=== PATIENT | female | born 1945 | race Caucasian/White ===

== ENCOUNTER → 2016-08-26 | Outpatient (CLI) | payer MEDICARE, OTHER ==
[~2016-08-26] MED LIST: ALBU83IN INH; ALBUTEROL INH; ASTELIN SPRAY; EPIP0.3I2 SC; FLOM5CAP PO; LIBR5CAP PO; LIBRAX PO; MULTCAP PO; OXYC1TAB23 PO; PROBCAP4 PO; PROT1TAB2 PO; SYMBICORT INH; SYNT125T PO
[2016-08-26 13:07] LABS: MEAN CORPUSCULAR HEMOGLOBIN 32.2 pg (27.0-33.0); MEAN CORPUSCULAR HGB CONC 33.6 g/dl (32.0-36.5); MEAN CORPUSCULAR VOLUME 95.6 fl (80.0-96.0); RED CELL DISTRIBUTION WIDTH 12.3 % (11.5-14.5)
[2016-08-26 13:42] LABS: ALBUMIN 3.6 GM/DL (3.2-5.2); ALBUMIN/GLOBULIN RATIO 1.29 (1.00-1.93); BILIRUBIN,TOTAL 0.5 MG/DL (0.2-1.0); CREATININE FOR GFR 0.98 MG/DL (0.55-1.02); GLOMERULAR FILTRATION RATE 59.7 (>39); POTASSIUM SERUM 4.5 MEQ/L (3.5-5.1); TOTAL PROTEIN 6.4 GM/DL (6.4-8.2)
== END ==
LOC: M WUC 09:32
PROVIDERS: ATTEND Internal Medicine
DX: J45.909 Unspecified asthma, uncomplicated (principal); E78.00 Pure hypercholesterolemia, unspecified; E03.9 Hypothyroidism, unspecified

== ENCOUNTER → 2016-12-11 | Outpatient (REF) | payer MEDICARE, OTHER | LOC: M SFHCPLAZ 11:45 | PROVIDERS: ATTEND Nurse Practitioner Adult Health | DX: J45.909 Unspecified asthma, uncomplicated (principal) ==

== ENCOUNTER → 2016-12-11 | Outpatient (REF) | payer MEDICARE, OTHER ==
[2016-12-11 12:36] LABS: CONTROL LINE MONO INT CTR LINE PRESENT
== END ==
LOC: M SFHCPLAZ 09:39
PROVIDERS: ATTEND Nurse Practitioner Adult Health
DX: J02.9 Acute pharyngitis, unspecified (principal)
CPT/HCPCS: 36415; 86308; 86663; 86664; 86665; 87081; 87880; G0463

== ENCOUNTER → 2017-01-02 | Outpatient (CLI) | payer MEDICARE, OTHER ==
--- NOTE | 2017-01-02 11:00 | REPMRS ---
Patient History The patient states she had a clinical breast exam in 12/2016. Patient is postmenopausal. Family history of colorectal cancer in father at age 50 or over, colorectal cancer in mother at age 50 or over, and breast cancer in maternal aunt under age 50. Digital Woman Screen Mammo: January 02, 2017 - Exam #: [id number] Bilateral CC and MLO view(s) were taken. Technologist: Evelyn Farfan, Technologist Prior study comparison: January 02, 2016, digital woman screen mammo performed at [facility]. December 29, 2014, digital woman screen mammo performed at [facility]. December 28, 2013, digital woman screen mammo performed at [facility]. FINDINGS: The breast tissue is heterogeneously dense. This may lower the sensitivity of mammography. There is a moderate amount of heterogeneously dense fibroglandular tissue which is fairly symmetric. There is no interval development of dominant mass, architectural distortion, or clustered microcalcification typical of malignancy. There has been no change in the appearance of the mammogram from the prior studies. ASSESSMENT: BI-RADS/ACR category 1 mammogram. Negative. Recommendation Routine screening mammogram of both breasts in 1 year (for women over age 40). This mammogram was interpreted with the aid of an FDA-approved computer-aided dectection system. Electronically Signed By: Kosta Ulloa MD 01/02/17 1100
== END ==
LOC: M WHC 10:07
PROVIDERS: ATTEND Nurse Practitioner Women's Health
DX: Z12.31 Encounter for screening mammogram for malignant neoplasm of breast (principal); Z78.0 Asymptomatic menopausal state; Z80.3 Family history of malignant neoplasm of breast
CPT/HCPCS: G0202; G0463

== ENCOUNTER → 2017-02-20 | Outpatient (CLI) | payer MEDICARE, OTHER ==
--- NOTE | 2017-02-20 12:57 | REP ---
MAXILLOFACIAL CT WITHOUT CONTRAST: HISTORY: Recurrent infection. Minimal mucosal thickening is present in the right maxillary sinus. The remaining sinuses are clear. The osteomeatal units are patent. The middle and inferior nasal turbinates are partially paradoxical. There is very minimal deviation of the nasal septum to the right. The cribriform plate, medial myrick of the orbits, and optic canals are intact. The carotid canals form a segment of the posterolateral myrick of the sphenoid sinus. The left sphenoid sinus septum inserts into the left internal carotid canal wall. Minimal mucosal thickening is present in the left mastoid air cells. IMPRESSION: Sinus mucosal thickening as described above. Signed by Rey Hirsch MD 02/20/2017 01:31 P
== END ==
LOC: M RAD 09:51
PROVIDERS: ATTEND Allergy & Immunology Allergy
DX: J32.9 Chronic sinusitis, unspecified (principal)

== ENCOUNTER → 2017-03-03 | Outpatient (CLI) | payer MEDICARE, OTHER ==
[2017-03-03 13:57] LABS: ALBUMIN 3.9 GM/DL (3.2-5.2); ALKALINE PHOSPHATASE 97 U/L (45-117); ALT/SGPT 37 U/L (12-78); ANION GAP 6 MEQ/L (8-16); AST/SGOT 28 U/L (7-37); BILIRUBIN,TOTAL 0.6 MG/DL (0.2-1.0); BLOOD UREA NITROGEN 19 MG/DL (7-18); CALCIUM LEVEL 8.7 MG/DL (8.8-10.2); CARBON DIOXIDE LEVEL 30 MEQ/L (21-32); CHLORIDE LEVEL 108 MEQ/L (98-107); CREATININE FOR GFR 0.88 MG/DL (0.55-1.02); GLOMERULAR FILTRATION RATE > 60.0 (>39); GLUCOSE, FASTING 98 MG/DL (83-110); POTASSIUM SERUM 4.3 MEQ/L (3.5-5.1); SODIUM LEVEL 144 MEQ/L (136-145); TOTAL PROTEIN 6.5 GM/DL (6.4-8.2)
== END ==
LOC: M WUC 09:24
PROVIDERS: ATTEND Internal Medicine
DX: K76.0 Fatty (change of) liver, not elsewhere classified (principal); E03.9 Hypothyroidism, unspecified

== ENCOUNTER → 2017-09-10 | Outpatient (CLI) | payer MEDICARE, OTHER ==
[2017-09-10 08:51] LABS: HEMOGLOBIN 13.1 g/dl (12.0-15.5); MEAN CORPUSCULAR HEMOGLOBIN 31.3 pg (27.0-33.0); MEAN CORPUSCULAR HGB CONC 32.8 g/dl (32.0-36.5); MEAN CORPUSCULAR VOLUME 95.5 fl (80.0-96.0); PLATELET COUNT, AUTOMATED 176 10^3/uL (150-450); RED BLOOD COUNT 4.19 10^6/uL (4.00-5.40); RED CELL DISTRIBUTION WIDTH 12.1 % (11.5-14.5)
[2017-09-10 09:19] LABS: ALBUMIN 3.6 GM/DL (3.2-5.2); ALBUMIN/GLOBULIN RATIO 1.24 (1.00-1.93); ALKALINE PHOSPHATASE 104 U/L (45-117); ALT/SGPT 42 U/L (12-78); ANION GAP 6 MEQ/L (8-16); AST/SGOT 26 U/L (7-37); BILIRUBIN,TOTAL 0.4 MG/DL (0.2-1.0); BLOOD UREA NITROGEN 21 MG/DL (7-18); CALCIUM LEVEL 8.5 MG/DL (8.8-10.2); CARBON DIOXIDE LEVEL 32 MEQ/L (21-32); CHLORIDE LEVEL 109 MEQ/L (98-107); CHOLESTEROL LEVEL 188 MG/DL (<200); CHOLESTEROL RISK RATIO 2.506 (<5); CREATININE FOR GFR 0.84 MG/DL (0.55-1.30); GLOMERULAR FILTRATION RATE > 60.0 (>39); GLUCOSE, FASTING 91 MG/DL (70-100); HDL CHOLESTEROL 75 MG/DL (>40); NON-HDL-C 113 MG/DL; SODIUM LEVEL 147 MEQ/L (136-145); TOTAL PROTEIN 6.5 GM/DL (6.4-8.2); TRIGLYCERIDES LEVEL 65 MG/DL (<150)
== END ==
LOC: M WUC 08:10
DX: K76.0 Fatty (change of) liver, not elsewhere classified (principal); E78.00 Pure hypercholesterolemia, unspecified; J45.909 Unspecified asthma, uncomplicated
CPT/HCPCS: 83735

== ENCOUNTER → 2017-09-16 | Outpatient (REF) | payer MEDICARE, OTHER | LOC: M SFHCPLAZ 12:34 | DX: R10.9 Unspecified abdominal pain (principal); Z53.8 Procedure and treatment not carried out for other reasons ==

== ENCOUNTER → 2017-09-16 | Outpatient (REF) | payer MEDICARE, OTHER ==
[2017-09-16 16:21] LABS: APPEARANCE, URINE CLEAR (CLEAR); BACTERIA, URINE AUTO 1+ (NEGATIVE); BILIRUBIN, URINE AUTO NEGATIVE (NEGATIVE); BLOOD, URINE BLOOD NEGATIVE (NEGATIVE); COLOR, URINE YELLOW (YELLOW); GLUCOSE, URINE (UA) AUTO NEGATIVE (NEGATIVE); KETONE, URINE AUTO NEGATIVE (NEGATIVE); LEUKOCYTE ESTERASE, URINE AUTO 1+ (NEGATIVE); NITRITE, URINE AUTO NEGATIVE (NEGATIVE); PROTEIN, URINE AUTO NEGATIVE (NEGATIVE); RBC, URINE AUTO 6 /HPF (0-3); SPECIFIC GRAVITY URINE AUTO 1.009 (1.002-1.035); SQUAMOUS EPITHELIAL CELL UR AU 0 /HPF (0-6); UROBILINOGEN, URINE AUTO 0.2 mg/dL (0.0-2.0); WBC, URINE AUTO 28 /HPF (0-3)
== END ==
LOC: M SFHCPLAZ 15:35
DX: R10.9 Unspecified abdominal pain (principal)
CPT/HCPCS: 81001

== ENCOUNTER → 2017-09-18 | Outpatient (CLI) | payer MEDICARE, OTHER | LOC: M RAD 14:45 | DX: R10.9 Unspecified abdominal pain (principal) | CPT/HCPCS: 76775 ==

== ENCOUNTER → 2017-11-10 | Outpatient (CLI) | payer MEDICARE, OTHER ==
[2017-11-10 19:38] LABS: BASO % 0.3 % (0.0-1.0); EOS # 0.1 10^3/uL (0.0-0.50); EOS % 1.6 % (0.0-3.0); HEMATOCRIT 41.5 % (36.0-47.0); HEMOGLOBIN 13.7 g/dl (12.0-15.5); IMMATURE GRANULOCYTE % 0.1 % (0-3.0); LYMPH # 1.3 10^3/uL (1.5-4.5); LYMPH % 18.9 % (24.0-44.0); MEAN CORPUSCULAR HEMOGLOBIN 31.2 pg (27.0-33.0); MEAN CORPUSCULAR VOLUME 94.5 fl (80.0-96.0); MONO # 0.3 10^3/uL (0.0-0.8); MONO % 4.4 % (0.0-5.0); NEUTROPHILS # 5.2 10^3/uL (1.8-7.7); NEUTROPHILS % 74.7 % (36.0-66.0); PLATELET COUNT, AUTOMATED 235 10^3/uL (150-450); RED BLOOD COUNT 4.39 10^6/uL (4.00-5.40)
[2017-11-10 19:46] LABS: IMMUNOGLOBULIN G 701 MG/DL (681-1648); IMMUNOGLOBULIN M 96.4 MG/DL (40-230)
[2017-11-10 20:54] LABS: IMMUNOGLOBULIN E 40.6 IU/ML (<100)
[2017-11-14 14:57] LABS: IMMUNOGLOBULIN D 1.43 mg/dL (<14.11); IgG SERUM (part of Subclasses) 653 mg/dL (700-1600); IgG Subclass 1 380 mg/dL (248-810); IgG Subclass 2 264 mg/dL (130-555); IgG Subclass 3 24 mg/dL (15-102); IgG Subclass 4 24 mg/dL (2-96); STREP PNEUMO TYPE 1 4.1 ug/mL (>1.3); STREP PNEUMO TYPE 12F 1.4 ug/mL (>1.3); STREP PNEUMO TYPE 14 37.7 ug/mL (>1.3); STREP PNEUMO TYPE 18C 22.5 ug/mL (>1.3); STREP PNEUMO TYPE 19A 25.1 ug/mL (>1.3); STREP PNEUMO TYPE 19F 33.7 ug/mL (>1.3); STREP PNEUMO TYPE 23F 8.6 ug/mL (>1.3); STREP PNEUMO TYPE 3 3.1 ug/mL (>1.3); STREP PNEUMO TYPE 4 1.6 ug/mL (>1.3); STREP PNEUMO TYPE 6B 75.9 ug/mL (>1.3); STREP PNEUMO TYPE 7F 12.3 ug/mL (>1.3); STREP PNEUMO TYPE 8 1.9 ug/mL (>1.3); STREP PNEUMO TYPE 9N 10.2 ug/mL (>1.3); STREP PNEUMO TYPE 9V 2.5 ug/mL (>1.3)
== END ==
LOC: M WUC 16:32
DX: D84.9 Immunodeficiency, unspecified (principal); J32.9 Chronic sinusitis, unspecified
CPT/HCPCS: 82785

== ENCOUNTER → 2018-01-02 | Outpatient (CLI) | payer MEDICARE, OTHER | LOC: M WHC 10:19 | DX: Z12.31 Encounter for screening mammogram for malignant neoplasm of breast (principal); Z78.0 Asymptomatic menopausal state; Z80.0 Family history of malignant neoplasm of digestive organs; R30.0 Dysuria | CPT/HCPCS: 77067 ==

== ENCOUNTER → 2018-03-05 | Outpatient (CLI) | payer MEDICARE, OTHER ==
[2018-03-05 12:57] LABS: ALBUMIN 3.6 GM/DL (3.2-5.2); ALBUMIN/GLOBULIN RATIO 1.44 (1.00-1.93); ALKALINE PHOSPHATASE 91 U/L (45-117); ALT/SGPT 33 U/L (12-78); ANION GAP 6 MEQ/L (8-16); AST/SGOT 25 U/L (7-37); BILIRUBIN,TOTAL 0.6 MG/DL (0.2-1.0); BLOOD UREA NITROGEN 19 MG/DL (7-18); CALCIUM LEVEL 8.7 MG/DL (8.8-10.2); CARBON DIOXIDE LEVEL 31 MEQ/L (21-32); CHLORIDE LEVEL 107 MEQ/L (98-107); CHOLESTEROL LEVEL 169 MG/DL (<200); CREATININE FOR GFR 0.87 MG/DL (0.55-1.30); GLOMERULAR FILTRATION RATE > 60.0 (>39); GLUCOSE, FASTING 94 MG/DL (70-100); HDL CHOLESTEROL 65 MG/DL (>40); LDL CHOLESTEROL 93 MG/DL (<100); NON-HDL-C 104 MG/DL; POTASSIUM SERUM 4.3 MEQ/L (3.5-5.1); SODIUM LEVEL 144 MEQ/L (136-145); THYROID STIMULATING HORMONE 0.603 uIU/ML (0.358-3.740); TOTAL PROTEIN 6.1 GM/DL (6.4-8.2); TRIGLYCERIDES LEVEL 55 MG/DL (<150)
== END ==
LOC: M WUC 09:16
DX: K76.0 Fatty (change of) liver, not elsewhere classified (principal); E78.00 Pure hypercholesterolemia, unspecified; E03.9 Hypothyroidism, unspecified
CPT/HCPCS: 84443

== ENCOUNTER → 2018-04-07 | Outpatient (REF) | payer MEDICARE, OTHER ==
[~2018-04-07] MED LIST changes: +FLOM0.4C39 PO; -FLOM5CAP PO
[2018-04-07 16:26] LABS: APPEARANCE, URINE CLEAR (CLEAR); BACTERIA, URINE AUTO NEGATIVE (NEGATIVE); BILIRUBIN, URINE AUTO NEGATIVE (NEGATIVE); BLOOD, URINE BLOOD NEGATIVE (NEGATIVE); COLOR, URINE YELLOW (YELLOW); GLUCOSE, URINE (UA) AUTO NEGATIVE (NEGATIVE); KETONE, URINE AUTO NEGATIVE (NEGATIVE); LEUKOCYTE ESTERASE, URINE AUTO NEGATIVE (NEGATIVE); NITRITE, URINE AUTO NEGATIVE (NEGATIVE); PROTEIN, URINE AUTO NEGATIVE (NEGATIVE); RBC, URINE AUTO 2 /HPF (0-3); SPECIFIC GRAVITY URINE AUTO 1.006 (1.002-1.035); SQUAMOUS EPITHELIAL CELL UR AU 0 /HPF (0-6); UROBILINOGEN, URINE AUTO 0.2 mg/dL (0.0-2.0); WBC, URINE AUTO 0 /HPF (0-3)
== END ==
LOC: M SFHCPLAZ 15:58
PROVIDERS: ATTEND Internal Medicine
DX: R30.0 Dysuria (principal)
CPT/HCPCS: 81001; 87086; G0463

== ENCOUNTER → 2018-04-08 | Outpatient (CLI) | payer MEDICARE, OTHER ==
--- NOTE | 2018-04-08 17:39 | REP ---
CT abdomen and pelvis without IV or oral contrast: History: Left flank pain. Comparison CT study is from April 14, 2015. CT findings: Digital preliminary dock boss radiograph demonstrates clips in right upper quadrant. There is a dextroconvex scoliotic curve. The bowel gas pattern is normal. The lung bases are clear on axial CT images. No focal hepatic or splenic lesion is seen. No adrenal lesion is observed. The pancreas shows no evidence of mass or cyst. No retroperitoneal mass or adenopathy is seen. Vascular calcification is noted in a normal caliber aorta. The uterus is surgically absent. Small and large intestinal bowel loops are unremarkable in the abdomen and pelvis. The appendix is surgically absent. No abdominal wall defect is seen. No bony destructive lesion is seen. Impression: Status post hysterectomy, appendectomy, and cholecystectomy. No urinary tract calculus or hydronephrosis is seen. No acute abdominal or pelvic abnormality. Electronically Signed by Davi Ulloa MD 04/08/2018 07:44 P
== END ==
LOC: M RAD 12:10
PROVIDERS: ATTEND Internal Medicine
DX: R10.2 Pelvic and perineal pain (principal)

== ENCOUNTER → 2018-09-08 | Outpatient (CLI) | payer MEDICARE, OTHER ==
[2018-09-08 13:07] LABS: ALBUMIN 3.9 GM/DL (3.2-5.2); BILIRUBIN,TOTAL 0.6 MG/DL (0.2-1.0); CALCIUM LEVEL 9.1 MG/DL (8.8-10.2); CREATININE FOR GFR 0.98 MG/DL (0.55-1.30); GLOMERULAR FILTRATION RATE 59.4 (>39); MAGNESIUM LEVEL 1.9 MG/DL (1.8-2.4); POTASSIUM SERUM 4.1 MEQ/L (3.5-5.1); TOTAL PROTEIN 6.7 GM/DL (6.4-8.2)
== END ==
LOC: M WUC 09:07
PROVIDERS: ATTEND Internal Medicine
DX: E78.00 Pure hypercholesterolemia, unspecified (principal); J45.909 Unspecified asthma, uncomplicated

== ENCOUNTER → 2018-10-02 | Outpatient (CLI) | payer MEDICARE, OTHER ==
--- NOTE | 2018-10-02 15:07 | REP ---
CHEST X-RAY: Two views. HISTORY: Bronchitis. COMPARISON CHEST X-RAY: August 31, 2013. FINDINGS: The cardiac silhouette is somewhat prominent with cardiothoracic ratio measuring 54.8% today. The aorta is tortuous. Pulmonary vasculature is not increased. The pleural angles are sharp. Lungs are well inflated and clear. There are surgical clips in right upper quadrant of the abdomen. There are degenerative changes in the thoracic spine. IMPRESSION: Mildly prominent heart. Otherwise no acute disease. Electronically Signed by Davi Ulloa MD 10/02/2018 08:17 P
== END ==
LOC: M SMT 10:12
PROVIDERS: ATTEND Allergy & Immunology Allergy
DX: I51.7 Cardiomegaly (principal)

== ENCOUNTER → 2019-01-26 | Outpatient (CLI) | payer MEDICARE, OTHER ==
--- NOTE | 2019-01-26 15:14 | REPMRS ---
Patient History The patient states she has not had a clinical breast exam in over a year. Family history of colorectal cancer at age 50 or over in mother, colorectal cancer at age 50 or over in father, breast cancer under age 50 in maternal aunt. Digital Woman Screen Mammo: January 26, 2019 - Exam #: [id number] Bilateral CC and MLO view(s) were taken. Technologist: Nessa Irene, Technologist Prior study comparison: January 02, 2018, bilateral digital woman screen mammo performed at [facility]. January 02, 2017, digital woman screen mammo performed at [facility]. January 02, 2016, digital woman screen mammo performed at [facility]. FINDINGS: The breast tissue is heterogeneously dense. This may lower the sensitivity of mammography. There is a moderate amount of heterogeneously dense fibroglandular tissue which is fairly symmetric. There is no interval development of dominant mass, architectural distortion, or grouped microcalcification typical of malignancy. There has been no change in the appearance of the mammogram from the prior studies. 3-D tomosynthesis shows no additional findings. Assessment: BI-RADS/ACR category 1 mammogram. Negative Mammogram. Recommendation Routine screening mammogram of both breasts in 1 year (for women over age 40). This patient's Lifetime Breast Cancer RIsk is estimated at 3.3 %. This mammogram was interpreted with the aid of an FDA-approved computer-aided dectection system. Electronically Signed By: Kosta Ulloa MD 01/26/19 [id number]
== END ==
LOC: M WHC 12:53
PROVIDERS: ATTEND Nurse Practitioner Women's Health
DX: Z12.31 Encounter for screening mammogram for malignant neoplasm of breast (principal)

== ENCOUNTER → 2019-03-15 | Outpatient (CLI) | payer MEDICARE, OTHER ==
[2019-03-15 14:20] LABS: HEMATOCRIT 41.6 % (36.0-47.0); HEMOGLOBIN 13.4 g/dl (12.0-15.5); MEAN CORPUSCULAR HEMOGLOBIN 31.3 pg (27.0-33.0); MEAN CORPUSCULAR HGB CONC 32.2 g/dl (32.0-36.5); MEAN CORPUSCULAR VOLUME 97.2 fl (80.0-96.0); PLATELET COUNT, AUTOMATED 201 10^3/uL (150-450); RED BLOOD COUNT 4.28 10^6/uL (4.00-5.40); WHITE BLOOD COUNT 4.8 10^3/uL (4.0-10.0)
[2019-03-15 14:46] LABS: ALBUMIN 3.8 GM/DL (3.2-5.2); ALT/SGPT 34 U/L (12-78); BILIRUBIN,TOTAL 0.6 MG/DL (0.2-1.0); BLOOD UREA NITROGEN 21 MG/DL (7-18); CALCIUM LEVEL 9.1 MG/DL (8.8-10.2); CARBON DIOXIDE LEVEL 30 MEQ/L (21-32); CHLORIDE LEVEL 108 MEQ/L (98-107); CHOLESTEROL LEVEL 191 MG/DL (<200); CHOLESTEROL RISK RATIO 2.448 (<5); CREATININE FOR GFR 0.94 MG/DL (0.55-1.30); GLOMERULAR FILTRATION RATE > 60.0 (>39); GLUCOSE, FASTING 92 MG/DL (70-100); HDL CHOLESTEROL 78 MG/DL (>40); LDL CHOLESTEROL 101 MG/DL (<100); NON-HDL-C 113 MG/DL; POTASSIUM SERUM 3.9 MEQ/L (3.5-5.1); SODIUM LEVEL 144 MEQ/L (136-145); THYROID STIMULATING HORMONE 0.824 uIU/ML (0.358-3.740); TOTAL PROTEIN 6.4 GM/DL (6.4-8.2); TRIGLYCERIDES LEVEL 58 MG/DL (<150)
== END ==
LOC: M WUC 08:44
PROVIDERS: ATTEND Internal Medicine
DX: K76.0 Fatty (change of) liver, not elsewhere classified (principal); E78.00 Pure hypercholesterolemia, unspecified; E03.9 Hypothyroidism, unspecified

== ENCOUNTER → 2019-09-28 | Outpatient (CLI) | payer MEDICARE, OTHER ==
[2019-09-28 10:12] LABS: ALBUMIN 3.5 GM/DL (3.2-5.2); ALT/SGPT 30 U/L (12-78); BILIRUBIN,TOTAL 0.6 MG/DL (0.2-1.0); BLOOD UREA NITROGEN 19 MG/DL (7-18); CALCIUM LEVEL 9.1 MG/DL (8.8-10.2); CARBON DIOXIDE LEVEL 31 MEQ/L (21-32); CHLORIDE LEVEL 109 MEQ/L (98-107); CREATININE FOR GFR 0.88 MG/DL (0.55-1.30); GLOMERULAR FILTRATION RATE > 60.0 (>39); GLUCOSE, FASTING 86 MG/DL (70-100); SODIUM LEVEL 145 MEQ/L (136-145); TOTAL PROTEIN 6.4 GM/DL (6.4-8.2)
== END ==
LOC: M WUC 08:18
PROVIDERS: ATTEND Internal Medicine
DX: E78.00 Pure hypercholesterolemia, unspecified (principal)

== ENCOUNTER → 2020-01-28 | Outpatient (CLI) | payer MEDICARE, OTHER ==
--- NOTE | 2020-01-28 12:25 | REPMRS ---
Patient History The patient states she had a clinical breast exam in 2019. Family history of colorectal cancer at age 50 or over in mother, colorectal cancer at age 50 or over in father, breast cancer under age 50 in maternal aunt. 3D TOMOSYNTHESIS WAS PERFORMED. The Evelina Neal lifetime risk for breast cancer is 3.1%. Volpara breast density b. Digital Woman Screen Mammo: January 28, 2020 - Exam #: [id number] Bilateral CC and MLO view(s) were taken. Technologist: Lissett Vasques, Technologist Prior study comparison: January 26, 2019, bilateral digital woman screen mammo performed at [facility]. January 02, 2018, bilateral digital woman screen mammo performed at [facility]. FINDINGS: The breast tissue is heterogeneously dense. This may lower the sensitivity of mammography. There has been no change in the appearance of the mammogram from the prior studies. There is a moderate amount of residual fibroglandular tissue which is fairly symmetric. There is no interval development of dominant mass, areas of architectural distortion, or clustered microcalcification typical of malignancy. Assessment: BI-RADS/ACR category 1 mammogram. Negative Mammogram. Recommendation Routine screening mammogram in 1 year (for women over age 40). This mammogram was interpreted with the aid of an FDA-approved computer-aided dectection system. Electronically Signed By: Brice Weber MD 01/28/20 2170
== END ==
LOC: M WHC 10:42
PROVIDERS: ATTEND Nurse Practitioner Women's Health
DX: Z01.419 Encounter for gynecological examination (general) (routine) without abnormal findings (principal); Z12.31 Encounter for screening mammogram for malignant neoplasm of breast; Z80.0 Family history of malignant neoplasm of digestive organs
CPT/HCPCS: 77063; 77067; G0101

== ENCOUNTER → 2020-04-03 | Outpatient (CLI) | payer SELFPAY | LOC: M LABSMTC 12:11 | PROVIDERS: ATTEND Pediatrics | DX: Z20.822 Contact with and (suspected) exposure to COVID-19 (principal) ==

== ENCOUNTER → 2020-04-07 | Outpatient (CLI) | payer MEDICARE ==
[~2020-04-07] MED LIST changes: +OMEP40CA97 PO
[2020-04-07 11:35] LABS: HEMATOCRIT 41.4 % (36.0-47.0); HEMOGLOBIN 13.2 g/dl (12.0-15.5); MEAN CORPUSCULAR HEMOGLOBIN 31.5 pg (27.0-33.0); MEAN CORPUSCULAR HGB CONC 31.9 g/dl (32.0-36.5); MEAN CORPUSCULAR VOLUME 98.8 fl (80.0-96.0); PLATELET COUNT, AUTOMATED 193 10^3/uL (150-450); RED BLOOD COUNT 4.19 10^6/uL (4.00-5.40)
[2020-04-07 12:26] LABS: ALBUMIN 3.6 GM/DL (3.2-5.2); ALT/SGPT 27 U/L (12-78); BILIRUBIN,TOTAL 0.5 MG/DL (0.2-1.0); BLOOD UREA NITROGEN 21 MG/DL (7-18); CALCIUM LEVEL 9.3 MG/DL (8.8-10.2); CARBON DIOXIDE LEVEL 33 MEQ/L (21-32); CHLORIDE LEVEL 107 MEQ/L (98-107); CHOLESTEROL LEVEL 189 MG/DL (<200); CHOLESTEROL RISK RATIO 2.304 (<5); CREATININE FOR GFR 0.94 MG/DL (0.55-1.30); GLOMERULAR FILTRATION RATE > 60.0 (>39); GLUCOSE, FASTING 83 MG/DL (70-100); HDL CHOLESTEROL 82 MG/DL (>40); LDL CHOLESTEROL 96 MG/DL (<100); MAGNESIUM LEVEL 1.9 MG/DL (1.8-2.4); NON-HDL-C 107 MG/DL; POTASSIUM SERUM 4.3 MEQ/L (3.5-5.1); SODIUM LEVEL 143 MEQ/L (136-145); THYROID STIMULATING HORMONE 0.802 uIU/ML (0.358-3.740); TOTAL PROTEIN 6.4 GM/DL (6.4-8.2); TRIGLYCERIDES LEVEL 54 MG/DL (<150)
== END ==
LOC: M WUC 09:07
PROVIDERS: ATTEND Internal Medicine
DX: K58.0 Irritable bowel syndrome with diarrhea (principal); J45.909 Unspecified asthma, uncomplicated; E78.00 Pure hypercholesterolemia, unspecified; E03.9 Hypothyroidism, unspecified

== ENCOUNTER → 2020-04-12 | Outpatient (CLI) | payer MEDICARE, OTHER ==
--- NOTE | 2020-04-12 11:59 | REPPI ---
INDICATION: ACUTE RIGHT ANKLE PAIN. COMPARISON: None. TECHNIQUE: Four views FINDINGS: Four views of the right ankle demonstrate intact ankle mortise. No fracture is seen. Vascular calcification is observed across the ankle. Achilles and plantar calcaneal spurring is noted. No fracture or subluxation is seen. IMPRESSION: No fracture noted. Vascular calcification. Heel spurs. Otherwise negative. <Electronically signed by Kosta Ulloa > 04/12/20 [id number]
== END ==
LOC: M PLAIMG 11:21
PROVIDERS: ATTEND Internal Medicine
DX: M77.31 Calcaneal spur, right foot (principal); M25.571 Pain in right ankle and joints of right foot
CPT/HCPCS: 73610; G0463

== ENCOUNTER 2020-04-23 06:12 | Emergency (ER) | payer MEDICARE, OTHER ==
[~2020-04-23] VITALS: Ht 154.9 cm; Wt 64.5 kg
[~2020-04-23 06:12] MED LIST changes: -OMEP40CA97 PO
--- OUTSIDE RECORDS SUMMARY | 2020-04-23 06:18 | CCD ---
Author Author [facility] Organization [facility] Address Unknown Phone Unavailable Care Team Providers Care Home Care Rn Name Role Phone Rola Padron Unavailable PROBLEMS Type Condition ICD9-CM Code CEK18-LC Code Onset Dates Condition S tatus SNOMED Code Notes Problem Family history of colon cancer Z80.0 Active 4 [id number] Her father had colon cancer. She just had a barium enema in 2014. Problem Hypothyroidism E03.9 Active 92831015 She is o n replacement therapy with levothyroxin 100 mcg daily and as of February 2019 her TSH was 0.824, indicating adequate replacement therapy. Problem Irritable bowel syndrome with diarrhea K58.0 A ctive [id number] Symptoms are ongoing intermittently. Had colonoscopy in 2009, barium enema in 2014, CT of the abdomen in March 2015. Celiac sprue serologic evaluation negative in 09/28. She has a colorectal surgeon. In January 2014 she had hemorrhoidal banding and anoscopy by her colorectal surgeon. Xifaxan has been prescribed in the past by her colorectal surgeon and again in December 2015. She apparently saw her colorectal surgeon in about January 2016. Probiotic therapy is probably the best option here, and she has had some benefit from a low FODMAP diet. I have prescribed Xifaxan intermittently for a few days when she has a severe flareup. Problem Aortic valve sclerosis I35.8 Active 00309549 Has aortic sclerosis without stenosis, but moderate AI by last echocardiogram May 2018. This was unchanged from April 2007 in November 2010. I would plan on another echocardiogram in 2021. Problem Hx of hysterectomy with hx of benign disease or negative Pap smears Z90.710 Active 573520049 Problem Fatty liver K76.0 Active 149447816 Patient flores s a history of mild liver enzyme elevations--predominantly transaminases. This likely reflects fatty liver. She is overweight. Has had previous a documented negative hepatitis B and C serologies. Liver tests had elevated significantly in 09/28 and again in July and August 2013 when I think she passed CBD stones. Has had cholecystectomy. Her liver function tests have been normal since January 2014 through February 2019. Problem Anxiety F41.9 Active 44544498 She is doing we ll at present but has had issues in the past related to her sinus disease. She has Librax available but I have also provided her with hydroxyzine to use also. Problem Nephrolithiasis N20.0 Active 67244687 She had a kidney stone overlying left renal pelvis on KUB in 05/2009. She had left flank pain and left hydronephrosis July to August 2013, has had a lithotripsy and basketing of her stones with transient double J stent placement at the time. I believe her kidney stones at that point were adequately treated, and a renal ultrasound in August 2017 was unremarkable. However, she is having recurrent left flank symptoms as of March 2018 and I suspected a recurrent stone, but CT was negative in March 2018. Problem Allergic rhinitis J30.9 Active 72877380 She h as been seen by an planner who documented dust mite allergies. She has decided against allergy shots, and I encouraged her to use intranasal steroids, clearly more beneficial therapeutically than Astelin. I believe her planner maintains that Astelin therapy is superior to her intranasal steroid therapy but I personally disagree. She has seen ENT for further evaluation also and she has even had CT scans. They apparently have not offered her surgical intervention despite her chronic issues. She is currently doing well on Singulair, budesonide nasal irrigations and/or intranasal Nasonex. She has not had a flareup since April 2019. Problem Asthma J45.909 Active [id number] She has not flores d significant difficulty since she started Symbicort and intranasal therapy for her allergic rhinitis except for occasional sinus infections and she has been under the care of ENT also. She is on Singulair. Her pharmaceutical plan would like her to switch to an alternative steroid/LABA controller inhaler but she does not wish to because she is doing so well on Symbicort. Problem Vaginal atrophy N95.2 Active 494449279 Problem Hypercholesterolemia E78.00 Active 22821748 Sh karl is on simvastatin therapy as of July 2015 and her lipid control is optimal as of February 2019. ALLERGIES Allergen (clinical drug ingredient) Drug/Non Drug Allergy do cumented on EMR Reaction Allergy Type Onset Date Status Penicillin (For Allergies Use Only) facial swelling Drug A llergy Active methylprednisolone MethylPREDNISolone(IDC Code:[address]-4 4) facial burning 11/26/16 Drug Allergy Active Guaifenesin Patient does not recall reaction Drug Allergy Active meclizine Meclizine HCl(ND Code:[address]-11) Patient do es not recall Drug Allergy Active Bee sting Anaphylaxis Non Drug Allergy Active sulfa reddness,rash Non Drug Allergy Activ e morphine Morphine Sulfate([facility] Code:[address]-29) very sick Drug A llergy Active fish/nuts Anaphylaxis Non Drug Allergy Active doxycycline Doxycycline Hyclate([facility] Code:[address]- 01) unknown-Pt does not remember. Drug Allergy Active cefuroxime Ceftin gi upset Drug Allergy Active Stadol hallucinations Drug Allergy Active PredniSONE facial swelling and reddness Drug Allergy Active dust mites, mold, mildew stuffiness, wheezing Non Drug All ergy Active ENCOUNTERS from 1945 to 2020-01-28 Encounter Location Date Provider Diagnosis [facility] [address] [place] [id number] Jan, Rola Liceac Routine gynecologica l examination Z01.419 and Breast cancer screening by mammogram Z12.31 IMMUNIZATIONS Vaccine Route Administration Date Status Influenza (18 yrs & older) Flublok IM Intramuscular Dec 31, 2018 Administered Influenza (18 yrs & older) Flublok IM Intramuscular Dec 29, 2019 Administered Influenza (High Dose 65 & up) Unknown Jan 02, 2017 Ot hers Influenza (High Dose 65 & up) IM Intramuscular Jan 16, 2017 A dministered Influenza (18 yrs & older) Flublok IM Intramuscular Jan 09, 2018 Administered TD Adult 0.5mL (Tetanus) Unknown May 11, 2003 Adminis tered Influenza (High Dose 65 & up) IM Intramuscular Jan 16, 2016 A dministered Zoster 50mcg/0.5mL (Shingrix) Unknown August 12, 2018 Ad ministered Zoster 50mcg/0.5mL (Shingrix) Unknown May 27, 2018 Ad ministered Influenza (High Dose 65 & up) IM Intramuscular Dec 28, 2014 A dministered Zoster 0.65mL (Zostavax) Unknown Feb 03, 2014 Adminis tered Pneumococcal Adult 0.5mL (Pneumovax 23) Unknown May 11, 2012 Administered TDAP IM Intramuscular September 09, 2016 Administered Pneumococcal 0.5mL (Prevnar 13) IM Intramuscular Feb 13, 2015 Administered SOCIAL HISTORY Tobacco Use: Social History Observation Description Date Details (start date - stop date) Never Smoker Sex Assigned At : Social History Observation Description Sex Assigned At Unknown Audit Question Answer Notes Total Score: 1 Interpretation: Alcohol Education Language: Question Answer Notes Languages spoken: Indian Sexual Hx: Question Answer Notes Had sex in the last 12 months (vaginal, oral, or anal)? Yes LMP: hyster Have you ever had an STD? No with Men only Drug and Alcohol Question Answer Notes Total Score: 0 Interpretation: No problems reported Alcohol Screening: Question Answer Notes Did you have a drink containing alcohol in the past year? Ye s Points 1 Interpretation Negative How often did you have six or more drinks on one occas ion in the past year? Never (0 points) How many drinks did you have on a typica l day when you were drinking in the past year? 1 or 2 (0 points) How often did you have a drink containing alcohol in t he past year? Monthly or less (1 point) BMI Care Goal Follow-Up Question Answer Notes Above Normal BMI Follow-Up Dietary needs education, Gi ving encouragement to exercise, Weight monitoring Tobacco Use: Question Answer Notes Are you a: never smoker REASON FOR REFERRAL No Information VITAL SIGNS Weight 147 lbs Jan, Weight-kg 66.68 kg Jan, Height 60.5 in Jan, BMI 28.23 kg/m2 Jan, Blood pressure systolic 132 mm Hg Jan, Blood pressure diastolic 66 mm Hg Jan, MEDICATIONS Medication SIG (Take, Route, Frequency, Duration) Start Date En d Date Status Simvastatin 10 MG 1 tablet in the evening Orally Once a day for 90 days Active Nasonex 50 MCG/ACT 2 sprays in each nostril Nasally Twice a day for 90 days Not-Taking Zaditor 0.025 % 1 drop into affected eye Ophthalmic Twice a day Active Nebulizer/Tubing/Mouthpiece - as directed _ PRN USE, DX: J45 .909 for 30 Days Sep, Active Symbicort 160-4.5 MCG/ACT 2 puffs Inhalation Twice a day for 90 day s Active Singulair 10 MG 1 tablet Orally Once a day for 90 days Sep, Active Omeprazole 40 mg 1 capsule Orally Once a day for 90 Active Albuterol Sulfate HFA 108 (90 Base) MCG/ACT 2 puffs In halation every 4 hours as needed for 90 days Active Synthroid 100 MCG TAKE ONE TABLET BY MOUTH EVERY DAY (FREDDIE) for 90 d ays Active Valacyclovir HCl 1 GM 2 tablet Orally Every 12 giovanna rs as needed for cold sore for 1 days Dec, Active Vitamin D3 50 MCG (2000 UT) 1 capsule Orally Once a day Active Theratears 0.25 % as directed Ophthalmic as needed for dry eyes Active Multivitamins OTC 1 tab(s) Orally daily A ctive Budesonide 0.5 MG/2ML as directed Inhalation Mix 1 vial with saline for nasal rinse once or twice a day for 90 day(s) Sep, Active EpiPen 0.3 MG/0.3ML (1:1000) as directed Intramuscular MAY FILL GENERICALLY as needed for 90 days Active Probiotic _ 1 tab(s) Orally daily Active Saline Nasal [place] 0.65 % 2 drops in each nostril as needed Nasally twice daily Active Albuterol Sulfate (2.5 MG/3ML) 0.083% 3 ml Inhalation Every 4 hours as needed for cough/wheeze/SOB for 90 day(s) Feb, Activ e Librax 5-2.5 MG 2 capsule Orally Daily for 30 days Active PROCEDURES No Information RESULTS No Results REASON FOR VISIT ANNUAL / MAMMO MEDICAL (GENERAL) HISTORY Type Description Date Medical History Hypothyroidism Medical History Allergic rhinitis Medical History Nephrolithiasis Medical History Aortic valve sclerosis Medical History Asthma Medical History Irritable bowel syndrome with diarrhea Medical History Fatty liver Medical History Family history of colon cancer Medical History Hypercholesterolemia Medical History Anxiety Surgical History excision of anal fissure Surgical History c section X 2 Surgical History [id number] Surgical History ALEXIS & LSO 1977 Surgical History thyroid lobectomy 1991 Surgical History cholecystectomy 1980 Surgical History laminectomy-ruptured disk 4-5 02/2003 Surgical History Colonoscopy 10/2009 Surgical History stent insertion 09/11/13 Surgical History Banding of internal hemorrhoids 01/2014 Surgical History extraction of both upper wisdom teeth Hospitalization History No Hospitalization history informati on Goals Section No Information Health Concerns No Information MEDICAL EQUIPMENT No Information MENTAL STATUS No Information FUNCTIONAL STATUS No Information ASSESSMENTS Encounter Date Diagnosis Notes Jan, Breast cancer screening by mammogram (IC D-10 - Z12.31) Jan, Routine gynecological examination (ICD-1 0 - Z01.419) PLAN OF TREATMENT Treatment Notes Test Name Order Date [facility] Deep Screening Bilateral (Ultrasound if Indicated ) (3D Mammo) 2020-01-28 Next Appt Details 1 Year Reason:Prn Provider Name:Andrew Pina, 2020-04-12 10 :00:00 AM, [address] [place], [id number], Follow Up:1 YearPrn Insurance Providers Payer Name Payer Address Payer Phone Insured Name Patient Relati onship to Insured Coverage Start Date Coverage End Date [facility] [address] [address] [facility] [phone] IRLANDA GAMEZ MEDICARE Part A and B [address] [facility] [phone] IRLANDA GAMEZ
--- OUTSIDE RECORDS SUMMARY | 2020-04-23 06:18 | CCD ---
Author Author [facility] Organization [facility] Address Unknown Phone Unavailable Care Team Providers Care Student Services Coordinator Name Role Phone Andrew Pina Unavailable PROBLEMS Type Condition ICD9-CM Code KLH30-EX Code Onset Dates Condition S tatus SNOMED Code Notes Problem Family history of colon cancer Z80.0 Active 4 [id number] Her father had colon cancer. She just had a barium enema in 2019. Sees Dr. Lo. Problem Hypothyroidism E03.9 Active 12647393 She is o n replacement therapy with levothyroxin 100 mcg daily and as of March 2020 her TSH was 0.802, indicating adequate replacement therapy. Problem Irritable bowel syndrome with diarrhea K58.0 A ctive [id number] Symptoms are ongoing intermittently. Had colonoscopy in [...] flareup. 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 This was unchanged from April 2007 in November 2010. I would plan on another echocardiogram in 2021. Problem Hx of hysterectomy with hx of benign disease or negative Pap smears Z90.710 Active 980149601 Problem Fatty liver K76.0 Active 271795080 Patient flores s a history of mild [...] have been normal since January 2014 through March 2020. Problem Anxiety F41.9 Active 21558157 She is doing we ll at present but has had issues in the past related to her sinus disease. She has Librax available but I have also provided her with hydroxyzine to use also. Problem Nephrolithiasis N20.0 Active 14046959 She had a kidney stone overlying left [...] March 2018. Problem Allergic rhinitis J30.9 Active 82789913 She h as been seen by an commercial intelligence manager who documented dust mite allergies. She has decided against allergy shots, and I encouraged her to use intranasal steroids, clearly more beneficial therapeutically than Astelin. I believe her commercial intelligence manager maintains that Astelin therapy is superior to her intranasal steroid therapy but I personally disagree. She has seen ENT for further evaluation also and she has even had CT scans. They apparently have not offered her surgical intervention despite her chronic issues. She is currently doing well on Singulair, budesonide nasal irrigations and/or intranasal Nasonex. She had not had a flareup since April 2019, until March 2020. Problem Asthma J45.909 Active 605720876 She has not flores d significant difficulty since she started Symbicort and intranasal therapy for her allergic rhinitis except for occasional sinus infections, and she has been under the care of ENT also. She is on Singulair. Her pharmaceutical plan would like her to switch to an alternative steroid/LABA controller inhaler but she does not wish to because she is doing so well on Symbicort. Problem Vaginal atrophy N95.2 Active 497495562 Problem Hypercholesterolemia E78.00 Active 04029460 Christine barajas is on simvastatin therapy as of July 2015 and her lipid control is optimal as of March 2020. ALLERGIES Allergen (clinical drug ingredient) Drug/Non Drug Allergy do cumented on EMR Reaction Allergy Type Onset Date Status Penicillin (For Allergies Use Only) facial swelling Drug A llergy Active methylprednisolone MethylPREDNISolone([facility] Code:[address]-1 4) facial burning 11/26/16 Drug Allergy Active Guaifenesin Patient does not recall reaction Drug Allergy Active meclizine Meclizine HCl(ND Code:[address]-59) Patient do es not recall Drug Allergy Active Bee sting Anaphylaxis Non Drug Allergy Active sulfa reddness,rash Non Drug Allergy Activ e morphine Morphine Sulfate([facility] Code:[address]-11) very sick Drug A llergy Active fish/nuts Anaphylaxis Non Drug Allergy Active doxycycline Doxycycline Hyclate([facility] Code:[address]- 01) unknown-Pt does not remember. Drug Allergy Active cefuroxime Ceftin gi upset Drug Allergy Active Stadol hallucinations Drug Allergy Active PredniSONE facial swelling and reddness Drug Allergy Active dust mites, mold, mildew stuffiness, wheezing Non Drug All ergy Active ENCOUNTERS from 1945 to 2020-04-14 Encounter Location Date Provider Diagnosis [address] [address] Mar, Andrew Pina Irritable bowel syndrome with diarrhea K 58.0 IMMUNIZATIONS Vaccine Route Administration Date Status Influenza (18 yrs & older) Flublok IM Intramuscular Dec 31, 2018 Administered Influenza (18 yrs & older) Flublok IM Intramuscular Dec 29, 2019 Administered Zoster 50mcg/0.5mL (Shingrix) Unknown May 27, 2018 Ad ministered Zoster 50mcg/0.5mL (Shingrix) Unknown August 12, 2018 Ad ministered Influenza (18 yrs & older) Flublok IM Intramuscular Jan 09, 2018 Administered TD Adult 0.5mL (Tetanus) Unknown May 11, 2003 Adminis tered Influenza (High Dose 65 & up) IM Intramuscular Jan 16, 2017 A dministered Influenza (High Dose 65 & up) Unknown Jan 02, 2017 Ot hers Influenza (High Dose 65 & up) IM Intramuscular Jan 16, 2016 A dministered Influenza (High Dose 65 & up) IM [...] Education Language: Question Answer Notes Languages spoken: Spanish Sexual Hx: Question Answer Notes Had sex [...] REASON FOR REFERRAL No Information VITAL SIGNS No information MEDICATIONS Medication SIG (Take, Route, Frequency, Duration) Notes Start Da te End Date Status EpiPen 0.3 MG/0.3ML (1:1000) as directed Intramuscular MAY FILL GENERICALLY as needed for 90 days Active Symbicort 160-4.5 MCG/ACT 2 puffs Inhalation Twice a day for 90 days Active Budesonide 0.5 MG/2ML as directed Inhalation Mix 1 vial with saline for nasal rinse once or twice a day for 90 day(s) Sep, Active Multivitamins OTC 1 tab(s) Orally daily Active Omeprazole 40 mg 1 capsule Orally Once a day for 90 Active Saline Nasal [place] 0.65 % 2 drops in each nostril as needed Nasally twice daily Active Librax 5-2.5 MG 2 capsule Orally Daily for 30 days Active Valacyclovir HCl 1 GM 2 tablet Orally Every 12 [address] as needed for cold sore for 1 days Dec, Active Synthroid 100 MCG TAKE ONE TABLET BY MOUTH EVERY DAY (FREDDIE) for 90 day s Active Nasonex 50 MCG/ACT 2 sprays in each nostril Nasally Twice a day for 90 days Not-Taking Theratears 0.25 % as directed Ophthalmic as needed for dry eyes Active Albuterol Sulfate HFA 108 (90 Base) MCG/ACT 2 puffs In halation every 4 hours as needed for 90 days Active Nebulizer/Tubing/Mouthpiece - as directed _ PRN USE, DX: J45.909 for 30 Days Sep, Active Simvastatin 10 MG 1 tablet in the evening Orally Once a day for 90 da ys Active Vitamin D3 50 MCG (2000 UT) 1 capsule Orally Once a day Active Zaditor 0.025 % 1 drop into affected eye Ophthalmic Twice a day Active Albuterol Sulfate (2.5 MG/3ML) 0.083% 3 ml Inhalation Every 4 hours as needed for cough/wheeze/SOB for 90 day(s) Feb, Active Singulair 10 MG 1 tablet Orally Once a day for 90 days Sep, Active Probiotic _ 1 tab(s) Orally daily Ac tive PROCEDURES No Information RESULTS No Results REASON FOR VISIT refill-librax MEDICAL (GENERAL) HISTORY Type Description Date Medical History Hypothyroidism Medical History Allergic rhinitis Medical History Nephrolithiasis Medical History Aortic valve sclerosis Medical History Asthma Medical History Irritable bowel syndrome with diarrhea Medical History Fatty liver Medical History Family history of colon cancer Medical History Hypercholesterolemia Medical History Anxiety Surgical History excision of anal fissure Surgical History c section X 2 Surgical History [id number] Surgical History ALEXIS & LSO 1978 Surgical History thyroid lobectomy 1992 Surgical History cholecystectomy 1981 Surgical History laminectomy-ruptured disk 4-5 02/2003 Surgical History Colonoscopy 10/2009 Surgical History stent insertion 09/11/13 Surgical History Banding of internal hemorrhoids 01/2014 Surgical History extraction of both upper wisdom teeth Hospitalization History No Hospitalization history informati on Goals Section No Information Health Concerns No Information MEDICAL EQUIPMENT No Information MENTAL STATUS No Information FUNCTIONAL STATUS No Information ASSESSMENTS Encounter Date Diagnosis Assessment Notes Treatment Notes Treatm ent Clinical Notes Mar, Irritable bowel syndrome with diarrhea (ICD-10 - K58.0) PLAN OF TREATMENT Medication Medication Name Sig Start Date Stop Date Albuterol Sulfate HFA 108 (90 Base) MCG/ACT 2 puffs In halation every 4 hours as needed for 90 days Synthroid 100 MCG TAKE ONE TABLET BY MOUTH EVERY DAY (FREDDIE) for 9 0 days Budesonide 0.5 MG/2ML as directed Inhalation Mix 1 vial with saline for nasal rinse once or twice a day for 90 day(s) Sep, Simvastatin 10 MG 1 tablet in the evening Orally Once a day for 90 days Librax 5-2.5 MG 2 capsule Orally Daily for 30 days Next Appt Details Provider Name:Andrew Pina, 2020-10-16 10 :00:00 AM, [facility] [place], [address], Insurance Providers Payer Name Payer Address Payer Phone Insured Name Patient Relati onship to Insured Coverage Start Date Coverage End Date [facility] [address] [id number] [facility] [id number] IRLANDA GAMEZ MEDICARE Part A and B [address] [facility] [phone] [phone] IRLANDA GAMEZ
--- OUTSIDE RECORDS SUMMARY | 2020-04-23 06:18 | CCD ---
Author Author [facility] Organization [facility] Address Unknown Phone Unavailable Care Team Providers Care Electric Truck Operator Name Role Phone Andrew Pina Unavailable PROBLEMS Type Condition ICD9-CM Code XMA18-CU Code Onset Dates Condition S tatus SNOMED Code Notes Problem Family history of colon cancer Z80.0 Active 4 [id number] Her father had colon cancer. She just had a barium enema in 2014. Problem Hypothyroidism E03.9 Active 22844198 She is o n replacement therapy with levothyroxin 100 mcg daily and as of February 2019 her TSH was 0.824, indicating adequate replacement therapy. Problem Irritable bowel syndrome with diarrhea K58.0 A ctive [id number] Symptoms are ongoing intermittently. Had colonoscopy in [...] flareup. 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 This was unchanged from April 2007 in November 2010. I would plan on another echocardiogram in 2021. Problem Hx of hysterectomy with hx of benign disease or negative Pap smears Z90.710 Active 121762270 Problem Fatty liver K76.0 Active 025431873 Patient flores s a history of mild [...] through February 2019. Problem Anxiety F41.9 Active 07129563 She is doing we ll at present but has had issues in the past related to her sinus disease. She has Librax available but I have also provided her with hydroxyzine to use also. Problem Nephrolithiasis N20.0 Active 36720073 She had a kidney stone overlying left [...] March 2018. Problem Allergic rhinitis J30.9 Active 98516227 She h as been seen by an adoption services manager who documented dust mite allergies. She has decided against allergy shots, and I encouraged her to use intranasal steroids, clearly more beneficial therapeutically than Astelin. I believe her adoption services manager maintains that Astelin therapy is superior [...] since April 2019. Problem Asthma J45.909 Active 944709853 She has not flores d significant difficulty [...] on Symbicort. Problem Vaginal atrophy N95.2 Active 049513261 Problem Hypercholesterolemia E78.00 Active 12622804 Christine barajas is on simvastatin therapy as of July 2015 and her lipid control is optimal as of February 2019. ALLERGIES Allergen (clinical drug ingredient) Drug/Non Drug Allergy do cumented on EMR Reaction Allergy Type Onset Date Status Penicillin (For Allergies Use Only) facial swelling Drug A llergy Active methylprednisolone MethylPREDNISolone([facility] Code:[address]-5 4) facial burning 11/26/16 Drug Allergy Active Guaifenesin Patient does not recall reaction Drug Allergy Active meclizine Meclizine HCl(ND Code:[address]-21) Patient do es not recall Drug Allergy Active Bee sting Anaphylaxis Non Drug Allergy Active sulfa reddness,rash Non Drug Allergy Activ e morphine Morphine Sulfate([facility] Code:[address]-37) very sick Drug A llergy Active fish/nuts Anaphylaxis Non Drug Allergy Active doxycycline Doxycycline Hyclate([facility] Code:[address]- 01) unknown-Pt does not remember. Drug Allergy Active cefuroxime Ceftin gi upset Drug Allergy Active Stadol hallucinations Drug Allergy Active PredniSONE facial swelling and reddness Drug Allergy Active dust mites, mold, mildew stuffiness, wheezing Non Drug All ergy Active ENCOUNTERS from 1945 to 2020-03-31 Encounter Location Date Provider Diagnosis [address] [address] Mar, Andrew Pina Upper respiratory tract infection, unspe cified type J06.9 and Asthma J45.909 IMMUNIZATIONS Vaccine Route Administration Date Status Influenza [...] Education Language: Question Answer Notes Languages spoken: Ecuadorean Sexual Hx: Question Answer Notes Had sex [...] FOR REFERRAL No Information VITAL SIGNS Weight 147.6 lbs Mar, Height 60.5 in Mar, BMI 28.35 kg/m2 Mar, Heart Rate 100 /min Mar, Respiratory Rate 18 /min Mar, Temperature 99.4 degrees Fahrenheit Mar, Oximetry 98% Mar, Blood pressure systolic 128 mm Hg Mar, Blood pressure diastolic 78 mm Hg Mar, MEDICATIONS Medication SIG (Take, Route, Frequency, Duration) Notes Start Da te End Date Status Symbicort 160-4.5 MCG/ACT 2 puffs Inhalation Twice a day for 90 days Active Albuterol Sulfate HFA 108 (90 Base) MCG/ACT 2 puffs In halation every 4 hours as needed for 90 days Active Singulair 10 MG 1 tablet Orally Once a day for 90 days Sep, Active Theratears 0.25 % as directed Ophthalmic as needed for dry eyes Active Saline Nasal [place] 0.65 % 2 drops in each nostril as needed Nasally twice daily Active Albuterol Sulfate (2.5 MG/3ML) 0.083% 3 ml Inhalation Every 4 hours as needed for cough/wheeze/SOB for 90 day(s) Feb, Active Multivitamins OTC 1 tab(s) Orally daily Active Vitamin D3 50 MCG (2000 UT) 1 capsule Orally Once a day Active Valacyclovir HCl 1 GM 2 tablet Orally Every 12 [address] as needed for cold sore for 1 days Dec, Active Simvastatin 10 MG 1 tablet in the evening Orally Once a day for 90 da ys Active EpiPen 0.3 MG/0.3ML (1:1000) as directed Intramuscular MAY FILL GENERICALLY as needed for 90 days Active Nasonex 50 MCG/ACT 2 sprays in each nostril Nasally Twice a day for 90 days Not-Taking Azithromycin 500 MG 1 tablet Orally Once a day for 5 days Mar, Active Probiotic _ 1 tab(s) Orally daily Ac tive Budesonide 0.5 MG/2ML as directed Inhalation Mix 1 vial with saline for nasal rinse once or twice a day for 90 day(s) Sep, Active Azithromycin 500 MG 2 tablet on the first day, then 1 tablet daily for 4 days Orally Once a day for 5 day(s) Mar, A ctive Librax 5-2.5 MG 2 capsule Orally, I-Stop #[id number] Daily for 30 days Active Nebulizer/Tubing/Mouthpiece - as directed _ PRN USE, DX: J45.909 for 30 Days Sep, Active Synthroid 100 MCG TAKE ONE TABLET BY MOUTH EVERY DAY (FREDDIE) for 90 day s Active Zaditor 0.025 % 1 drop into affected eye Ophthalmic Twice a day Active Omeprazole 40 mg 1 capsule Orally Once a day for 90 Active PROCEDURES No Information RESULTS No Results REASON FOR VISIT Sinus, ears MEDICAL (GENERAL) HISTORY Type Description Date Medical History Hypothyroidism Medical History Allergic rhinitis Medical History Nephrolithiasis Medical History Aortic valve sclerosis Medical History Asthma Medical History Irritable bowel syndrome with diarrhea Medical History Fatty liver Medical History Family history of colon cancer Medical History Hypercholesterolemia Medical History Anxiety Surgical History excision of anal fissure Surgical History c section X 2 Surgical History [id number] Surgical History ALEXIS & LSO 1977 Surgical History thyroid lobectomy 1991 Surgical History cholecystectomy 1981 Surgical History laminectomy-ruptured [...] Treatment Notes Treatm ent Clinical Notes Mar, Upper respiratory tract infe ction, unspecified type (ICD-10 - J06.9) She has a prolonged URIs lasting over 2 weeks and has done aggressive therapies for her sinus disease and asthma without much improvement. I offered her steroids but she is intolerant of both prednisone and Medrol. We will therefore treat her with 5 days of azithromycin, 500 mg daily. Should she fail to improve in the next couple of days, she should get tested for COVID but her symptoms and duration of illness I really not consistent, especially since she has a history of seasonal exacerbations of her allergic rhinitis this time of year. Mar, Asthma (ICD-10 - J45.909) She has not flores d significant difficulty [...] she is doing so well on Symbicort. PLAN OF TREATMENT Medication Medication Name Sig Start Date Stop Date Azithromycin 500 MG 2 tablet on the first day, then 1 tablet daily for 4 days Orally Once a day for 5 day(s) Mar, Azithromycin 500 MG 1 tablet Orally Once a day for 5 days Mar Next Appt Details Keep scheduled Reason: Provider Name:Andrew Pina, 2020-04-12 10 :00:00 AM, [address] [place], [address], Insurance Providers Payer Name Payer Address Payer Phone Insured Name Patient Relati onship to Insured Coverage Start Date Coverage End Date MEDICARE Part A and B [address] [facility] [phone] IRLANDA GAMEZ self [facility] [address] [address] [facility] [id number] [phone] IRLANDA GAMEZ self
--- OUTSIDE RECORDS SUMMARY | 2020-04-23 06:18 | CCD ---
Author Author [facility] Organization [facility] Address Unknown Phone Unavailable Care Team Providers Care Insurance Verification Specialist Name Role Phone Andrew Pina Unavailable PROBLEMS Type Condition ICD9-CM Code [id number] Code Onset Dates Condition S tatus SNOMED Code Notes Problem Family history of colon cancer Z80.0 Active 4 [id number] Her father had colon cancer. She just had a barium enema in 2014. Problem Hypothyroidism E03.9 Active 59473178 She is o n replacement therapy with levothyroxin 100 mcg daily and as of February 2019 her TSH was 0.824, indicating adequate replacement therapy. Problem Irritable bowel syndrome with diarrhea K58.0 A ctive [id number] Symptoms are ongoing intermittently. Had colonoscopy in [...] flareup. 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 This was unchanged from April 2007 in November 2010. I would plan on another echocardiogram in 2021. Problem Hx of hysterectomy with hx of benign disease or negative Pap smears Z90.710 Active 371554695 Problem Fatty liver K76.0 Active 354823249 Patient flores s a history of mild [...] through February 2019. Problem Anxiety F41.9 Active 39358835 She is doing we ll at present but has had issues in the past related to her sinus disease. She has Librax available but I have also provided her with hydroxyzine to use also. Problem Nephrolithiasis N20.0 Active 00375717 She had a kidney stone overlying left [...] March 2018. Problem Allergic rhinitis J30.9 Active 56446278 She h as been seen by an linen room attendant who documented dust mite allergies. She has decided against allergy shots, and I encouraged her to use intranasal steroids, clearly more beneficial therapeutically than Astelin. I believe her linen room attendant maintains that Astelin therapy is superior to [...] since April 2019. Problem Asthma J45.909 Active 271652089 She has not flores d significant difficulty [...] on Symbicort. Problem Vaginal atrophy N95.2 Active 766767540 Problem Hypercholesterolemia E78.00 Active 70273335 Christine barajas is on simvastatin therapy as of July 2015 and her lipid control is optimal as of February 2019. ALLERGIES Allergen (clinical drug ingredient) Drug/Non Drug Allergy do cumented on EMR Reaction Allergy Type Onset Date Status Penicillin (For Allergies Use Only) facial swelling Drug A llergy Active methylprednisolone MethylPREDNISolone(NDC Code:[address]-0 4) facial burning 11/26/16 Drug Allergy Active Guaifenesin Patient does not recall reaction Drug Allergy Active meclizine Meclizine HCl(ND Code:[address]-61) Patient do es not recall Drug Allergy Active Bee sting Anaphylaxis Non Drug Allergy Active sulfa reddness,rash Non Drug Allergy Activ e morphine Morphine Sulfate([facility] Code:[address]-67) very sick Drug A llergy Active fish/nuts Anaphylaxis Non Drug Allergy Active doxycycline Doxycycline Hyclate([facility] Code:[address]- 01) unknown-Pt does not remember. Drug Allergy Active cefuroxime Ceftin gi upset Drug Allergy Active Stadol hallucinations Drug Allergy Active PredniSONE facial swelling and reddness Drug Allergy Active dust mites, mold, mildew stuffiness, wheezing Non Drug All ergy Active ENCOUNTERS from 1945 to 2020-03-01 Encounter Location Date Provider Diagnosis [address] [address] Feb, Anderw Pina Irritable bowel syndrome with diarrhea K [...] Education Language: Question Answer Notes Languages spoken: Romanian Sexual Hx: Question Answer Notes Had sex [...] Notes Start Da te End Date Status Simvastatin 10 MG 1 tablet in the evening Orally Once a day for 90 da ys Active Nasonex 50 MCG/ACT 2 sprays in each nostril Nasally Twice a day for 90 days Not-Taking Singulair 10 MG 1 tablet Orally Once a day for 90 days Sep, Active Nebulizer/Tubing/Mouthpiece - as directed _ PRN USE, DX: J45.909 for 30 Days Sep, Active Zaditor 0.025 % 1 drop into affected eye Ophthalmic Twice a day Active Multivitamins OTC 1 tab(s) Orally daily Active Librax 5-2.5 MG 2 capsule Orally Daily for 30 days Active Albuterol Sulfate HFA 108 (90 Base) MCG/ACT 2 puffs In halation every 4 hours as needed for 90 days Active Synthroid 100 MCG TAKE ONE TABLET BY MOUTH EVERY DAY (FREDDIE) for 90 day s Active Valacyclovir HCl 1 GM 2 tablet Orally Every 12 giovanna rs as needed for cold sore for 1 days Dec, Active Theratears 0.25 % as directed Ophthalmic as needed for dry eyes Active Omeprazole 40 mg 1 capsule Orally Once a day for 90 Active Albuterol Sulfate (2.5 MG/3ML) 0.083% 3 ml Inhalation Every 4 hours as needed for cough/wheeze/SOB for 90 day(s) Feb, Active Probiotic _ 1 tab(s) Orally daily Ac tive EpiPen 0.3 MG/0.3ML (1:1000) as directed Intramuscular MAY FILL GENERICALLY as needed for 90 days Active Vitamin D3 50 MCG (2000 UT) 1 capsule Orally Once a day Active Saline Nasal [place] 0.65 % 2 drops in each nostril as needed Nasally twice daily Active Symbicort 160-4.5 MCG/ACT 2 puffs Inhalation Twice a day for 90 days Active Budesonide 0.5 MG/2ML as directed Inhalation Mix 1 vial with saline for nasal rinse once or twice a day for 90 day(s) Sep, Active PROCEDURES No Information RESULTS No Results REASON FOR VISIT librax MEDICAL (GENERAL) HISTORY Type Description Date Medical History Hypothyroidism Medical History Allergic rhinitis Medical History Nephrolithiasis Medical History Aortic valve sclerosis Medical History Asthma Medical History Irritable bowel syndrome with diarrhea Medical History Fatty liver Medical History Family history of colon cancer Medical History Hypercholesterolemia Medical History Anxiety Surgical History excision of anal fissure Surgical History c section X 2 Surgical History [id number] Surgical History ALEXIS & LSO 1977 Surgical [...] Notes Treatment Notes Treatm ent Clinical Notes Feb, Irritable bowel syndrome with diarrhea (ICD-10 - K58.0) PLAN OF TREATMENT Medication Medication Name Sig Start Date Stop Date Omeprazole 40 mg 1 capsule Orally Once a day for 90 Symbicort 160-4.5 MCG/ACT 2 puffs Inhalation Twice a day for 90 days Librax 5-2.5 MG 2 capsule Orally Daily for 30 days Singulair 10 MG 1 tablet Orally Once a day for 90 days Sep, 2 019 Next Appt Details Provider Name:Andrew Pina, 2020-04-12 10 :00:00 AM, [address] [place], [address], Insurance Providers Payer Name Payer Address Payer Phone Insured Name Patient Relati onship to Insured Coverage Start Date Coverage End Date MEDICARE Part A and B [address] [facility] [phone] IRLANDA GAMEZ [facility] [address] [address] [facility] [address] IRLANDA GAMEZ self
--- OUTSIDE RECORDS SUMMARY | 2020-04-23 06:18 | CCD ---
Author Author [facility] [employer] [facility] Organization [facility] Address Unknown Phone Unavailable Care Team Providers Care Ready To Wear Department Manager Name Role Phone Andrew Pina Unavailable PROBLEMS Type Condition ICD9-CM Code [id number] Code Onset Dates Condition S tatus SNOMED Code Notes Problem Family history of colon cancer Z80.0 Active 4 [id number] Her father had colon cancer. She just had a barium enema in 2014. Problem Hypothyroidism E03.9 Active 32294967 She is o n replacement therapy with levothyroxin 100 mcg daily and as of February 2019 her TSH was 0.824, indicating adequate replacement therapy. Problem Irritable bowel syndrome with diarrhea K58.0 A ctive 357931894 Symptoms are ongoing intermittently. Had colonoscopy in [...] flareup. 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 This was unchanged from April 2007 in November 2010. I would plan on another echocardiogram in 2021. Problem Hx of hysterectomy with hx of benign disease or negative Pap smears Z90.710 Active 351450868 Problem Fatty liver K76.0 Active 748464477 Patient flores s a history of mild [...] through February 2019. Problem Anxiety F41.9 Active 00369744 She is doing we ll at present but has had issues in the past related to her sinus disease. She has Librax available but I have also provided her with hydroxyzine to use also. Problem Nephrolithiasis N20.0 Active 09844527 She had a kidney stone overlying left [...] March 2018. Problem Allergic rhinitis J30.9 Active 72342279 She h as been seen by an business integration analyst who documented dust mite allergies. She has decided against allergy shots, and I encouraged her to use intranasal steroids, clearly more beneficial therapeutically than Astelin. I believe her business integration analyst maintains that Astelin therapy is superior to [...] since April 2019. Problem Asthma J45.909 Active 374159811 She has not flores d significant difficulty [...] on Symbicort. Problem Vaginal atrophy N95.2 Active 673646616 Problem Hypercholesterolemia E78.00 Active 26699550 Christine barajas is on simvastatin therapy as of July 2015 and her lipid control is optimal as of February 2019. ALLERGIES Allergen (clinical drug ingredient) Drug/Non Drug Allergy do cumented on EMR Reaction Allergy Type Onset Date Status Penicillin (For Allergies Use Only) facial swelling Drug A llergy Active methylprednisolone MethylPREDNISolone([facility] Code:[address]-2 4) facial burning 11/26/16 Drug Allergy Active Guaifenesin Patient does not recall reaction Drug Allergy Active meclizine Meclizine HCl(ND Code:[address]-93) Patient do es not recall Drug Allergy Active Bee sting Anaphylaxis Non Drug Allergy Active sulfa reddness,rash Non Drug Allergy Activ e morphine Morphine Sulfate([facility] Code:[address]-72) very sick Drug A llergy Active fish/nuts Anaphylaxis Non Drug Allergy Active doxycycline Doxycycline Hyclate([facility] Code:[address]- 01) unknown-Pt does not remember. Drug Allergy Active cefuroxime Ceftin gi upset Drug Allergy Active Stadol hallucinations Drug Allergy Active PredniSONE facial swelling and reddness Drug Allergy Active dust mites, mold, mildew stuffiness, wheezing Non Drug All ergy Active ENCOUNTERS from 1945 to 2020-04-04 Encounter Location Date Provider Diagnosis [address] [address] Mar, Andrew Pina Upper respiratory tract infection, unspe cified type J06.9 IMMUNIZATIONS Vaccine Route Administration Date Status Influenza [...] Education Language: Question Answer Notes Languages spoken: Portuguese Sexual Hx: Question Answer Notes Had sex [...] needed for dry eyes Active Saline Nasal [place] 0.65 % 2 drops in each nostril [...] 90 day(s) Sep, Active Azithromycin 500 MG 1 tab Orally Once a day for 3 days Mar, Active Librax 5-2.5 MG 2 capsule Orally, I-Stop #[id number] Daily for 30 days Active Nebulizer/Tubing/Mouthpiece - [...] Information RESULTS No Results REASON FOR VISIT refill-azithromycin MEDICAL (GENERAL) HISTORY Type Description Date Medical History Hypothyroidism Medical History Allergic rhinitis Medical History Nephrolithiasis Medical History Aortic valve sclerosis Medical History Asthma Medical History Irritable bowel syndrome with diarrhea Medical History Fatty liver Medical History Family history of colon cancer Medical History Hypercholesterolemia Medical History Anxiety Surgical History excision of anal fissure Surgical History c section X 2 Surgical History [id number] Surgical History ALEXIS & LSO 1977 Surgical [...] infe ction, unspecified type (ICD-10 - J06.9) PLAN OF TREATMENT Medication Medication Name Sig Start Date Stop Date Azithromycin 500 MG 1 tab Orally Once a day for 3 days Mar, Azithromycin 500 MG 1 tablet Orally Once a day for 5 days Mar Next Appt Details Provider Name:Andrew Pina, 2020-04-12 10 :00:00 AM, [address] [place], [address], Insurance Providers Payer Name Payer Address Payer Phone Insured Name Patient Relati onship to Insured Coverage Start Date Coverage End Date MEDICARE Part A and B [address] [facility] [phone] IRLANDA GAMEZ [facility] [address] [address] [facility] [phone] [phone] IRLANDA GAMEZ self
--- OUTSIDE RECORDS SUMMARY | 2020-04-23 06:18 | CCD ---
Author Author [facility] Organization [facility] Address Unknown Phone Unavailable Care Team Providers Care Overhead Foreman Name Role Phone Andrew Pina Unavailable PROBLEMS Type Condition ICD9-CM Code [id number] Code Onset Dates Condition S tatus SNOMED Code Notes Problem Family history of colon cancer Z80.0 Active 4 [id number] Her father had colon cancer. She just had a barium enema in 2014. Problem Hypothyroidism E03.9 Active 46528236 She is o n replacement therapy with levothyroxin 100 mcg daily and as of February 2019 her TSH was 0.824, indicating adequate replacement therapy. Problem Irritable bowel syndrome with diarrhea K58.0 A ctive 409491549 Symptoms are ongoing intermittently. Had colonoscopy in [...] flareup. 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 This was unchanged from April 2007 in November 2010. I would plan on another echocardiogram in 2021. Problem Hx of hysterectomy with hx of benign disease or negative Pap smears Z90.710 Active 128229205 Problem Fatty liver K76.0 Active 643563033 Patient flores s a history of mild [...] through February 2019. Problem Anxiety F41.9 Active 56195372 She is doing we ll at present but has had issues in the past related to her sinus disease. She has Librax available but I have also provided her with hydroxyzine to use also. Problem Nephrolithiasis N20.0 Active 92469444 She had a kidney stone overlying left [...] March 2018. Problem Allergic rhinitis J30.9 Active 02569664 She h as been seen by an supervisor photocomposition who documented dust mite allergies. She has decided against allergy shots, and I encouraged her to use intranasal steroids, clearly more beneficial therapeutically than Astelin. I believe her supervisor photocomposition maintains that Astelin therapy is superior to [...] since April 2019. Problem Asthma J45.909 Active 716488918 She has not flores d significant difficulty [...] on Symbicort. Problem Vaginal atrophy N95.2 Active 589079601 Problem Hypercholesterolemia E78.00 Active 83295985 Christine barajas is on simvastatin therapy as of July 2015 and her lipid control is optimal as of February 2019. ALLERGIES Allergen (clinical drug ingredient) Drug/Non Drug Allergy do cumented on EMR Reaction Allergy Type Onset Date Status Penicillin (For Allergies Use Only) facial swelling Drug A llergy Active methylprednisolone MethylPREDNISolone([facility] Code:[address]-3 4) facial burning 11/26/16 Drug Allergy Active Guaifenesin Patient does not recall reaction Drug Allergy Active meclizine Meclizine HCl(ND Code:[address]-42) Patient do es not recall Drug Allergy Active Bee sting Anaphylaxis Non Drug Allergy Active sulfa reddness,rash Non Drug Allergy Activ e morphine Morphine Sulfate([facility] Code:[address]-15) very sick Drug A llergy Active fish/nuts Anaphylaxis Non Drug Allergy Active doxycycline Doxycycline Hyclate([facility] Code:[address]- 01) unknown-Pt does not remember. Drug Allergy Active cefuroxime Ceftin gi upset Drug Allergy Active Stadol hallucinations Drug Allergy Active PredniSONE facial swelling and reddness Drug Allergy Active dust mites, mold, mildew stuffiness, wheezing Non Drug All ergy Active ENCOUNTERS from 1945 to 2020-03-01 Encounter Location Date Provider Diagnosis [address] [address] Feb, Andrew Silvana Asthma J45.909 IMMUNIZATIONS Vaccine Route Administration Date [...] Education Language: Question Answer Notes Languages spoken: Latvian Sexual Hx: Question Answer Notes Had sex [...] Orally Once a day Active Saline Nasal [place] 0.65 % 2 drops in each nostril as needed Nasally twice daily Active Symbicort 160-4.5 MCG/ACT 2 puffs Inhalation Twice a day for 90 days Active Budesonide 0.5 MG/2ML as directed Inhalation Mix 1 vial with saline for nasal rinse once or twice a day for 90 day(s) Sep, Active PROCEDURES No Information RESULTS No Results REASON FOR VISIT omeprazole/ symbicort MEDICAL (GENERAL) HISTORY Type Description Date Medical History Hypothyroidism Medical History Allergic rhinitis Medical History Nephrolithiasis Medical History Aortic valve sclerosis Medical History Asthma Medical History Irritable bowel syndrome with diarrhea Medical History Fatty liver Medical History Family history of colon cancer Medical History Hypercholesterolemia Medical History Anxiety Surgical History excision of anal fissure Surgical History c section X 2 Surgical History [id number]-njdnvnnbyavo-xlylm Surgical History ALEXIS & LSO 1977 Surgical History thyroid lobectomy 1992 Surgical History [...] Treatment Notes Treatm ent Clinical Notes Feb, Asthma (ICD-10 - J45.909) PLAN OF TREATMENT Medication Medication Name Sig [...] Name:Andrew Pina, 2020-04-12 10 :00:00 AM, [address] [place], [address], Insurance Providers Payer Name Payer Address Payer Phone Insured Name Patient Relati onship to Insured Coverage Start Date Coverage End Date [facility] [address] [address] [facility] [phone] IRLANDA GAMEZ MEDICARE Part A and B [address] [facility] [phone] IRLANDA GAMEZ self
--- OUTSIDE RECORDS SUMMARY | 2020-04-23 06:18 | CCD ---
Author Author [facility] Organization [facility] Address Unknown Phone Unavailable Care Team Providers Care Matrix Bath Attendant Name Role Phone Christina Sotomayor Unavailable PROBLEMS Type Condition ICD9-CM Code YKK86-OP Code Onset Dates Condition S tatus SNOMED Code Notes Problem Family history of colon cancer Z80.0 Active 4 [id number] Her father had colon cancer. She just had a barium enema in 2014. Problem Hypothyroidism E03.9 Active 87786804 She is o n replacement therapy with levothyroxin 100 mcg daily and as of February 2019 her TSH was 0.824, indicating adequate replacement therapy. Problem Irritable bowel syndrome with diarrhea K58.0 A ctive 241550391 Symptoms are ongoing intermittently. Had colonoscopy in [...] flareup. 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 This was unchanged from April 2007 in November 2010. I would plan on another echocardiogram in 2021. Problem Hx of hysterectomy with hx of benign disease or negative Pap smears Z90.710 Active 547415845 Problem Fatty liver K76.0 Active 670241098 Patient floers s a history of mild liver enzyme [...] through February 2019. Problem Anxiety F41.9 Active 22669229 She is doing we ll at present but has had issues in the past related to her sinus disease. She has Librax available but I have also provided her with hydroxyzine to use also. Problem Nephrolithiasis N20.0 Active 19570555 She had a kidney stone overlying left [...] March 2018. Problem Allergic rhinitis J30.9 Active 23940950 She h as been seen by an licensed customs broker who documented dust mite allergies. She has decided against allergy shots, and I encouraged her to use intranasal steroids, clearly more beneficial therapeutically than Astelin. I believe her licensed customs broker maintains that Astelin therapy is superior to [...] since April 2019. Problem Asthma J45.909 Active 585828192 She has not flores d significant difficulty [...] on Symbicort. Problem Vaginal atrophy N95.2 Active 574140867 Problem Hypercholesterolemia E78.00 Active 29143765 Christine barajas is on simvastatin therapy as of July 2015 and her lipid control is optimal as of February 2019. ALLERGIES Allergen (clinical drug ingredient) Drug/Non Drug Allergy do cumented on EMR Reaction Allergy Type Onset Date Status Penicillin (For Allergies Use Only) facial swelling Drug A llergy Active methylprednisolone MethylPREDNISolone([facility] Code:[address]-1 4) facial burning 11/26/16 Drug Allergy Active Guaifenesin Patient does not recall reaction Drug Allergy Active meclizine Meclizine HCl(ND Code:[address]-23) Patient do es not recall Drug Allergy Active Bee sting Anaphylaxis Non Drug Allergy Active sulfa reddness,rash Non Drug Allergy Activ e morphine Morphine Sulfate([facility] Code:[address]-78) very sick Drug A llergy Active fish/nuts Anaphylaxis Non Drug Allergy Active doxycycline Doxycycline Hyclate([facility] Code:[address]- 01) unknown-Pt does not remember. Drug Allergy Active cefuroxime Ceftin gi upset Drug Allergy Active Stadol hallucinations Drug Allergy Active PredniSONE facial swelling and reddness Drug Allergy Active dust mites, mold, mildew stuffiness, wheezing Non Drug All ergy Active ENCOUNTERS from 1945 to 2020-03-10 Encounter Location Date Provider Diagnosis [address] [address] Feb, Christina Sotomayor Irritable bowel syndrome with diarrhea K 58.0 [...] Intramuscular Dec 28, 2014 A dministered Zoster 50mcg/0.5mL (Shingrix) Unknown August 12, 2018 Ad ministered Zoster 50mcg/0.5mL (Shingrix) Unknown May 27, 2018 Ad ministered Zoster 0.65mL (Zostavax) Unknown Feb 03, 2014 [...] Education Language: Question Answer Notes Languages spoken: Setswana Sexual Hx: Question Answer Notes Had sex [...] Notes Start Da te End Date Status Nasonex 50 MCG/ACT 2 sprays in each nostril Nasally Twice a day for 90 days Not-Taking Budesonide 0.5 MG/2ML as directed Inhalation Mix 1 vial with saline for nasal rinse once or twice a day for 90 day(s) Sep, Active Zaditor 0.025 % 1 drop into affected eye Ophthalmic Twice a day Active EpiPen 0.3 MG/0.3ML (1:1000) as directed Intramuscular MAY FILL GENERICALLY as needed for 90 days Active Simvastatin 10 MG 1 tablet in the evening Orally Once a day for 90 da ys Active Multivitamins OTC 1 tab(s) Orally daily Active Singulair 10 MG 1 tablet Orally Once a day for 90 days Sep, Active Albuterol Sulfate HFA 108 (90 Base) MCG/ACT 2 puffs In halation every 4 hours as needed for 90 days Active Synthroid 100 MCG TAKE ONE TABLET BY MOUTH EVERY DAY (FREDDIE) for 90 day s Active Valacyclovir HCl 1 GM 2 tablet Orally Every 12 giovanna rs as needed for cold sore for 1 days Dec, Active Omeprazole 40 mg 1 capsule Orally Once a day for 90 Active Nebulizer/Tubing/Mouthpiece - as directed _ PRN USE, DX: J45.909 for 30 Days Sep, Active Albuterol Sulfate (2.5 MG/3ML) 0.083% 3 ml Inhalation Every 4 hours as needed for cough/wheeze/SOB for 90 day(s) Feb, Active Vitamin D3 50 MCG (2000 UT) 1 capsule Orally Once a day Active Symbicort 160-4.5 MCG/ACT 2 puffs Inhalation Twice a day for 90 days Active Theratears 0.25 % as directed Ophthalmic as needed for dry eyes Active Saline Nasal [place] 0.65 % 2 drops in each nostril as needed Nasally twice daily Active Librax 5-2.5 MG 2 capsule Orally, I-Stop #[id number] Daily for 30 days Active Probiotic _ 1 tab(s) Orally [...] History c section X 2 Surgical History iutqridm-uzkxvuenkjrs-phecc Surgical History ALEXIS & LSO 1977 Surgical [...] Medication Name Sig Start Date Stop Date Symbicort 160-4.5 MCG/ACT 2 puffs Inhalation Twice a day for 90 days Librax 5-2.5 MG 2 capsule Orally, I-Stop #[id number] Daily for 30 days Singulair 10 MG 1 tablet Orally Once a day for 90 days Sep, Omeprazole 40 mg 1 capsule Orally Once a day for 90 Next Appt Details Provider Name:Andrew Pina, 2020-04-12 10 :00:00 AM, [address] [place], [address], Insurance Providers Payer Name Payer Address Payer Phone Insured Name Patient Relati onship to Insured Coverage Start Date Coverage End Date MEDICARE Part A and B [address] [facility] [address] IRLANDA GAMEZ [facility] [address] [id number] [facility] [phone] IRLANDA GAMEZ
--- OUTSIDE RECORDS SUMMARY | 2020-04-23 06:19 | CCD ---
Author Author [facility] Organization [facility] Address Unknown Phone Unavailable Care Team Providers Care Director Of Development And Marketing Name Role Phone Ariella Gracia MD Unavailable Unavailable Samia, Ariella Huizar MD Unavailable Unavailable Samia, Ariella Huizar MD Unavailable Unavailable Samia, Ariella Huizar MD Unavailable Unavailable Samia, Ariella Huizar MD Unavailable Unavailable Samia, Ariella Huizar MD Unavailable Unavailable Samia, Ariella Huizar MD Unavailable Unavailable Samia, Ariella Huizar MD Unavailable Unavailable Samia, Ariella Huizar MD Unavailable Unavailable Samia, Ariella Huizar MD Unavailable Unavailable Samia, Ariella Huizar MD Unavailable Unavailable Samia, Ariella Huizar MD Unavailable Unavailable Samia, Ariella Huizar MD Unavailable Unavailable Samia, Ariella Huziar MD Unavailable Unavailable Samia, Ariella Huizar MD Unavailable Unavailable Samia, Ariella Huizar MD Unavailable Unavailable Samia, Ariella Huizar MD Unavailable Unavailable Samia, Ariella Huizar MD Unavailable Unavailable Samia, Ariella Huizar MD Unavailable Unavailable Samia, Ariella Huizar MD Unavailable Unavailable Samia, Ariella Huizar MD Unavailable Unavailable Samia, Ariella Huizar MD Unavailable Unavailable Samia, Ariella Huizar MD Unavailable Unavailable Samia, Ariella Huizar MD Unavailable Unavailable Samia, Ariella Huizar MD Unavailable Unavailable Samia, Ariella Huizar MD Unavailable Unavailable Samia, Ariella Huizar MD Unavailable Unavailable Samia, Ariella Huizar MD Unavailable Unavailable Samia, Ariella Huizar MD Unavailable Unavailable Samia, Ariella Huizar MD Unavailable Unavailable Samia, A Bhupendra MD Unavailable Unavailable Samia, A Bhupendra MD Unavailable Unavailable Samia, A Bhupendra MD Unavailable Unavailable Samia, A Bhupendra MD Unavailable Unavailable Samia, A Bhupendra MD Unavailable Unavailable Samia, A Bhupendra MD Unavailable Unavailable Samia, A Bhupendra MD Unavailable Unavailable Samia, A Bhupendra MD Unavailable Unavailable Samia, A Bhupendra MD Unavailable Unavailable Samia, A Bhupendra MD Unavailable Unavailable Samia, A Bhupendra MD Unavailable Unavailable Samia, A Bhupendra MD Unavailable Unavailable Samia, A Bhupendra MD Unavailable Unavailable Samia, A Bhupendra MD Unavailable Unavailable Samia, A Bhupendra MD Unavailable Unavailable Samia, A Bhupendra MD Unavailable Unavailable Samia, A Bhupendra MD Unavailable Unavailable Samia, A Bhupendra MD Unavailable Unavailable Samia, A Bhupendra MD Unavailable Unavailable Samia, A Bhupendra MD Unavailable Unavailable Samia, A Bhupendra MD Unavailable Unavailable Samia, A Bhupendra MD Unavailable Unavailable Samia, A Bhupendra MD Unavailable Unavailable Samia, A Bhupendra MD Unavailable Unavailable Samia, A Bhupendra MD Unavailable Unavailable Samia, A Bhupendra MD Unavailable Unavailable Samia, A Bhupendra MD Unavailable Unavailable Samia, A Bhupendra MD Unavailable Unavailable Samia, A Bhupendra MD Unavailable Unavailable Samia, A Bhupendra MD Unavailable Unavailable Samia, A Bhupendra MD Unavailable Unavailable Samia, A Bhupendra MD Unavailable Unavailable Samia, A Bhupendra MD Unavailable Unavailable Samia, A Bhupendra MD Unavailable Unavailable Samia, A Bhupendra MD Unavailable Unavailable Samia, A Bhupendra MD Unavailable Unavailable Samia, A Bhupendra MD Unavailable Unavailable Samia, A Bhupendra MD Unavailable Unavailable Samia, A Bhupendra MD Unavailable Unavailable Samia, A Bhupendra MD Unavailable Unavailable Samia, A Bhupendra MD Unavailable Unavailable Samia, A Bhupendra MD Unavailable Unavailable Samia, A Bhupendra MD Unavailable Unavailable Samia, A Bhupendra MD Unavailable Unavailable Samia, A Bhupendra MD Unavailable Unavailable Samia, A Bhupendra MD Unavailable Unavailable Samia, A Bhupendra MD Unavailable Unavailable Samia, A Bhupendra MD Unavailable Unavailable Samia, A Bhupendra MD Unavailable Unavailable Samia, A Bhupendra MD Unavailable Unavailable Samia, A Bhupendra MD Unavailable Unavailable Samia, A Bhupendra MD Unavailable Unavailable Samia, A Bhupendra MD Unavailable Unavailable Samia, A Bhupendra MD Unavailable Unavailable Samia, A Bhupendra MD Unavailable Unavailable Samia, A Bhupendra MD Unavailable Unavailable Samia, A Bhupendra MD Unavailable Unavailable Samia, A Bhupendra MD Unavailable Unavailable Samia, A Bhupendra MD Unavailable Unavailable Samia, A Bhupendra MD Unavailable Unavailable Samia, A Bhupendra MD Unavailable Unavailable Samia, A Bhupendra MD Unavailable Unavailable Samia, A Bhupendra MD Unavailable Unavailable Samia, A Bhupendra MD Unavailable Unavailable Samia, A Bhupendra MD Unavailable Unavailable Samia, A Bhupendra MD Unavailable Unavailable Samia, A Bhupendra MD Unavailable Unavailable Samia, A Bhupendra MD Unavailable Unavailable Samia, A Bhupendra MD Unavailable Unavailable Samia, A Bhupendra MD Unavailable Unavailable Samia, A Bhupendra MD Unavailable Unavailable Samia, A Bhupendra MD Unavailable Unavailable Samia, A Bhupendra MD Unavailable Unavailable Samia, A Bhupendra MD Unavailable Unavailable Samia, A Bhupendra MD Unavailable Unavailable Samia, A Bhupendra MD Unavailable Unavailable Samia, A Bhupendra MD Unavailable Unavailable Samia, A Bhupendra MD Unavailable Unavailable Samia, A Bhupendra MD Unavailable Unavailable Samia, A Bhupednra MD Unavailable Unavailable Samia, A Bhupendra MD Unavailable Unavailable Samia, A Bhupendra MD Unavailable Unavailable Samia, A Bhupendra MD Unavailable Unavailable Samia, A Bhupendra MD Unavailable Unavailable Samia, A Bhupendra MD Unavailable Unavailable Samia, A Bhupendra MD Unavailable Unavailable Samia, A Bhupendra MD Unavailable Unavailable Samia, A Bhupendra MD Unavailable Unavailable Samia, A Bhupendra MD Unavailable Unavailable Samia, A Bhupendra MD Unavailable Unavailable Samia, A Bhupendra MD Unavailable Unavailable Samia, A Bhupendra MD Unavailable Unavailable Samia, A Bhupendra MD Unavailable Unavailable Samia, A Bhupendra MD Unavailable Unavailable Samia, A Bhupendra MD Unavailable Unavailable Samia, A Bhupendra MD Unavailable Unavailable Samia, A Bhupendra MD Unavailable Unavailable Samia, A Bhupendra MD Unavailable Unavailable Samia, A Bhupendra MD Unavailable Unavailable Samia, A Bhupendra MD Unavailable Unavailable Samia, A Bhupendra MD Unavailable Unavailable Samia, A Bhupendra MD Unavailable Unavailable Samia, A Bhupendra MD Unavailable Unavailable Samia, A Bhupendra MD Unavailable Unavailable Samia, A Bhupendra MD Unavailable Unavailable Samia, A Bhupendra MD Unavailable Unavailable Samia, A Bhupendra MD Unavailable Unavailable Samia, A Bhupendra MD Unavailable Unavailable Samia, A Bhupendra MD Unavailable Unavailable Samia, A Bhupendra MD Unavailable Unavailable Smaia, A Bhupendra MD Unavailable Unavailable Samia, A Bhupendra MD Unavailable Unavailable Samia, A Bhupendra MD Unavailable Unavailable Samia, A Bhupendra MD Unavailable Unavailable Samia, A Bhupendra MD Unavailable Unavailable Samia, A Bhupendra MD Unavailable Unavailable Samia, A Bhupendra MD Unavailable Unavailable Samia, A Bhupendra MD Unavailable Unavailable Samia, A Bhupendra MD Unavailable Unavailable Samia, A Bhupendra MD Unavailable Unavailable Samia, A Bhupendra MD Unavailable Unavailable Samia, A Bhupendra MD Unavailable Unavailable Samia, A Bhupendra MD Unavailable Unavailable Samia, A Bhupendra MD Unavailable Unavailable Samia, A Bhupendra MD Unavailable Unavailable Samia, A Bhupendra MD Unavailable Unavailable Samia, A Bhupendra MD Unavailable Unavailable Samia, A Bhupendra MD Unavailable Unavailable Re-disclosure Warning The records that you are about to access may contain information from federally-assisted alcohol or drug abuse programs. If such information is present, then the following federally mandated warning applies: This information has been disclosed to you from records protected by federal confidentiality rules (42 CFR part 2). The federal rules prohibit you from making any further disclosure of this information unless further disclosure is expressly permitted by the written consent of the person to whom it pertains or as otherwise permitted by 42 CFR part 2. A general authorization for the release of medical or other information is NOT sufficient for this purpose. The Federal rules restrict any use of the information to criminally investigate or prosecute any alcohol or drug abuse patient.The records that you are about to access may contain highly sensitive health information, the redisclosure of which is protected by Article 27-F of the [place] Public Health law. If you continue you may have access to information: Regarding HIV / AIDS; Provided by facilities licensed or operated by the [place] Office of Mental Health; or Provided by the [place] Office for People With Developmental Disabilities. If such information is present, then the following [place] [employer] mandated warning applies: This information has been disclosed to you from confidential records which are protected by state law. State law prohibits you from making any further disclosure of this information without the specific written consent of the person to whom it pertains, or as otherwise permitted by law. Any unauthorized further disclosure in violation of state law may result in a fine or half-way sentence or both. A general authorization for the release of medical or other information is NOT sufficient authorization for further disc losure. Allergies and Adverse Reactions Type Description Substance Reaction Status Data Source(s ) Drug allergy Doxycycline Hyclate Doxycycline unknown-Pt does not r emember. Active eCW1 ([facility]) Drug allergy Morphine Sulfate Morphine very sick Active eCW1 ( [facility]) Drug allergy Meclizine HCl Meclizine Patient does not recall Active eCW1 ([facility]) Drug allergy MethylPREDNISolone Methylprednisolone facial burning Active eCW1 ([facility]) Drug allergy Guaifenesin Drug allergy Patient does not recall reactio n Active eCW1 ([facility]) Stadol Stadol Stadol hallucinations Active [facility] PredniSONE PredniSONE PredniSONE facial swelling and reddness Active eCW1 ([facility]) fish/nuts fish/nuts fish/nuts Anaphylaxis Active eCW1 ([facility]) Ceftin Ceftin Cefuroxime 25 MG/ML Oral Suspension [Ceftin] gi upset Active eCW1 ([facility]) sulfa sulfa sulfa reddness,rash Active eCW1 ([facility]) Bee sting Bee sting Bee sting Anaphylaxis Active eCW1 ([facility]) dust mites, mold, mildew dust mites, mold, mildew dust mites, mo ld, mildew stuffiness, wheezing Active eCW1 ([facility]) Stadol Stadol Stadol hallucinations Active eCW1 ([facility]) PredniSONE PredniSONE PredniSONE facial swelling and reddness Active eCW1 ([facility]) fish/nuts fish/nuts fish/nuts Anaphylaxis Active eCW1 ([facility]) Ceftin Ceftin Ceftin gi upset Active eCW1 ([facility]) sulfa sulfa sulfa reddness,rash Active eCW1 ([facility]) Bee sting Bee sting Bee sting Anaphylaxis Active eCW1 ([facility]) dust mites, mold, mildew dust mites, mold, mildew dust mites, mo ld, mildew stuffiness, wheezing Active eCW1 ([facility]) Stadol Stadol Stadol hallucinations Active eCW1 ([facility]) PredniSONE PredniSONE PredniSONE facial swelling and reddness Active eCW1 ([facility]) fish/nuts fish/nuts fish/nuts Anaphylaxis Active eCW1 ([facility]) Ceftin Ceftin Cefuroxime 25 MG/ML Oral Suspension [Ceftin] gi upset Active eCW1 ([facility]) sulfa sulfa sulfa reddness,rash Active eCW1 ([facility]) Bee sting Bee sting Bee sting Anaphylaxis Active eCW1 ([facility]) dust mites, mold, mildew dust mites, mold, mildew dust mites, mo ld, mildew stuffiness, wheezing Active eCW1 ([facility]) Family History Family Member Name Family Member Gender Family Member Status Date o f Status Description Data Source(s) Unknown Unknown Problem MEDENT ([facility], ) Encounters Encounter Providers Location Date Indications Data Source(s ) Outpatient [address] [facility] [place] [address] 04/12/2020 12:00:00 AM EST eCW1 (Critical [facility] hospital) Unknown [address] [facility] [place] [address] 04/12/2020 12:00:00 AM EST eCW1 (Critical access hospital) Unknown [address] [facility] [place] [address] 04/03/2020 12:00:00 AM EST eCW1 (Critical access hospital) Outpatient [address] [facility] [place] [address] 03/27/2020 12:00:00 AM EST eCW1 (Critical access hospital) Unknown [address] [facility] [place] [address] 03/09/2020 12:00:00 AM EST eCW1 (Critical access hospital) Unknown [address] [facility] [place] [address] 02/29/2020 12:00:00 AM EST eCW1 (Critical access hospital) Unknown [address] [facility] [place] [address] 02/29/2020 12:00:00 AM EST eCW1 ([facility]) ( [facility] DO[facility] TENDER Exam [address] [place] [address] 01/28/2020 12:00:00 AM EST eCW1 ([facility]) [place] [address] [facility] [address] 12/29/2019 12:00:00 AM EDT eCW1 ([facility]) Outpatient Referrer: Bhupendra Gracia MD 11/09/2019 12:54:30 P M EDT [facility] Outpatient Attender: Bhupendra Gracia MD [place] 11/09/2019 12:30:00 P M EDT MEDENT ([facility]) Unknown [address] [facility] [address] 10/13/2019 12:00:00 AM EDT eCW1 ([facility]) Outpatient [address] [facility] [place] [address] 10/05/2019 12:00:00 AM EDT eCW1 ([facility]) [facility] [address] [facility] [place] [address] 05/17/2019 12:00:00 AM EST eCW1 ([facility]) [facility] [address] [facility] [place] [address] 04/05/2019 12:00:00 AM EST [facility] [address] [place] [address] N [place] [address] 04/02/2019 12:00:00 AM EST eCW1 ([facility] [address] [facility] [place] [address] 03/23/2019 12:00:00 AM EST eCW1 ([facility]) [facility] [address] [facility] [place] [address] 03/23/2019 12:00:00 AM EST eCW1 ([facility]) [facility] [address] [place] [address], [place] [address] 03/08/2019 12:00:00 AM EST eCW1 (Critical access hospital) Immunizations Vaccine Date Status Description Data Source(s) influenza, recombinant, quadrIvalent,injectable, prese rvative free 12/29/2019 08:32:00 AM EDT completed eCW1 ([facility]) influenza, recombinant, quadrIvalent,injectable, prese rvative free 12/29/2019 08:32:00 AM EDT completed eCW1 ([facility]) influenza, recombinant, quadrIvalent,injectable, prese rvative free 12/29/2019 08:32:00 AM EDT completed eCW1 ([facility]) influenza, recombinant, quadrIvalent,injectable, prese rvative free 12/29/2019 08:32:00 AM EDT completed eCW1 ([facility]) influenza, recombinant, quadrIvalent,injectable, prese rvative free 12/29/2019 08:32:00 AM EDT completed eCW1 ([facility]) influenza, recombinant, quadrIvalent,injectable, prese rvative free 12/29/2019 08:32:00 AM EDT completed eCW1 ([facility]) influenza, recombinant, quadrIvalent,injectable, prese rvative free 12/29/2019 08:32:00 AM EDT completed eCW1 ([facility]) influenza, recombinant, quadrIvalent,injectable, prese rvative free 12/29/2019 08:32:00 AM EDT completed eCW1 ([facility]) influenza, recombinant, quadrIvalent,injectable, prese rvative free 12/29/2019 08:32:00 AM EDT completed eCW1 ([facility]) Medications Medication Brand Name Start Date Product Form Dose Route Admi nistrative Instructions Pharmacy Instructions Status Indications Reaction Description Data Source(s) 100 mcg/0.5 mL 04/14/2020 12:00:00 AM EST suspension 0 INJECT BY [facility] (FIRST DOSE) INJECT BY [facility] (FIRST DOSE) SOLD: 04/14/2020 [facility] 5-2.5 mg 04/13/2020 12:00:00 AM EST capsule 60 TAKE TWO CAPSULES BY MOUTH EVERY DAY MAXIMUM DAILY DOSE = 2 TAKE TWO CAPSULES BY MOUTH EVERY DAY MAX IMUM DAILY DOSE = 2 SOLD: 04/14/2020 [facility] ugartur 500 mg 04/03/2020 12:00:00 AM EST tablet 3 TAKE ONE TABLET BY MOUTH EVERY DAY TAKE ONE TABLET BY MOUTH EVERY DAY SOLD: 04/03/2020 [facility] Azithromycin 500 MG Oral Tablet Azithromycin 500 MG 03/27/2020 1 2:00:00 AM EST active Azithromycin 500 MG eCW1 ([facility]) Azithromycin 500 MG Oral Tablet Azithromycin 500 MG 03/27/2020 1 2:00:00 AM EST active Azithromycin 500 MG eCW1 ([facility]) Azithromycin 500 MG Oral Tablet Azithromycin 500 MG 03/27/2020 1 2:00:00 AM EST 1.0 {tablet} active Azithromyci n 500 MG eCW1 ([facility]) Azithromycin 500 MG Oral Tablet Azithromycin 500 MG 03/27/2020 1 2:00:00 AM EST 1.0 {tablet} active Azithromyci n 500 MG eCW1 ([facility]) 500 mg 03/27/2020 12:00:00 AM EST tablet 5 TAKE ONE TABLET BY MOUTH EVERY DAY FOR 5 DAYS TAKE ONE TABLET BY MOUTH EVERY DAY FOR 5 DAYS SOLD: 03/27/2020 [facility] 5-2.5 mg 03/10/2020 12:00:00 AM EST capsule 60 TAKE TWO CAPSULES BY MOUTH EVERY DAY MAXIMUM DAILY DOSE = 2 CAPSULES TAKE TWO CAPSULES BY MOUTH EVERY DAY MAXIMUM DAILY DOSE = 2 CAPSULES SOLD: 03/11/2020 [facility] Nebulizer/Tubing/Mouthpiece - Nebulizer/Tubing/Mouthpiece - 10/13/2019 12:00:00 AM EDT active Nebulizer/Tubing/ Mouthpiece - eCW1 ([facility]) Nebulizer/Tubing/Mouthpiece - Nebulizer/Tubing/Mouthpiece - 10/13/2019 12:00:00 AM EDT active Nebulizer/Tubing/ Mouthpiece - eCW1 ([facility]) Nebulizer/Tubing/Mouthpiece - Nebulizer/Tubing/Mouthpiece - 10/13/2019 12:00:00 AM EDT active Nebulizer/Tubing/ Mouthpiece - eCW1 ([facility]) Nebulizer/Tubing/Mouthpiece - Nebulizer/Tubing/Mouthpiece - 10/13/2019 12:00:00 AM EDT active Nebulizer/Tubing/ Mouthpiece - eCW1 ([facility]) Nebulizer/Tubing/Mouthpiece - Nebulizer/Tubing/Mouthpiece - 10/13/2019 12:00:00 AM EDT active Nebulizer/Tubing/ Mouthpiece - eCW1 ([facility]) Nebulizer/Tubing/Mouthpiece - Nebulizer/Tubing/Mouthpiece - 10/13/2019 12:00:00 AM EDT active Nebulizer/Tubing/ Mouthpiece - eCW1 ([facility]) Nebulizer/Tubing/Mouthpiece - Nebulizer/Tubing/Mouthpiece - 10/13/2019 12:00:00 AM EDT active Nebulizer/Tubing/ Mouthpiece - eCW1 ([facility]) Nebulizer/Tubing/Mouthpiece - Nebulizer/Tubing/Mouthpiece - 10/13/2019 12:00:00 AM EDT active Nebulizer/Tubing/ Mouthpiece - eCW1 ([facility]) Nebulizer/Tubing/Mouthpiece - Nebulizer/Tubing/Mouthpiece - 10/13/2019 12:00:00 AM EDT active Nebulizer/Tubing/ Mouthpiece - eCW1 ([facility]) Nebulizer/Tubing/Mouthpiece - Nebulizer/Tubing/Mouthpiece - 10/13/2019 12:00:00 AM EDT active Nebulizer/Tubing/ Mouthpiece - eCW1 ([facility]) Nebulizer/Tubing/Mouthpiece - Nebulizer/Tubing/Mouthpiece - 10/13/2019 12:00:00 AM EDT active Nebulizer/Tubing/ Mouthpiece - eCW1 ([facility]) 1 gram 05/18/2019 12:00:00 AM EST tablet 12 TAKE TWO TABLETS BY MOUTH EVERY 12 HOURS NEEDED FOR COLD SORE FOR 1 DAY TAKE TWO TABLETS BY MOUTH EVERY 12 HOURS NEEDED FOR COLD SORE FOR 1 DAY SOLD: 05/23/2019 [facility] Levofloxacin 500 MG Oral Tablet [Levaquin] Levaquin 500 MG L evaquin 500 MG 05/17/2019 12:00:00 AM EST active 1 tablet eCW1 ([facility]) 500 mg 05/17/2019 12:00:00 AM EST tablet 7 TAKE ONE TABLET BY MOUTH EVERY DAY FOR 7 DAYS TAKE ONE TABLET BY MOUTH EVERY DAY FOR 7 DAYS SOLD: 05/17/2019 [facility] 0.5 mg/2 mL 05/17/2019 12:00:00 AM EST suspension for nebuli zation 60 MIX 1 VIAL WITH SALINE FOR NASAL RINSE ONCE A DAY MIX 1 VIAL WITH SALINE FOR NASAL RINSE ONCE A DAY SOLD: 05/17/2019 [facility] Zithromax 500 MG UNK 04/02/2019 12:00:00 AM EST a ctive 1 tablet eCW1 ([facility]) 500 mg 04/02/2019 12:00:00 AM EST tablet 5 TAKE ONE TABLET BY MOUTH EVERY DAY FOR 5 DAYS TAKE ONE TABLET BY MOUTH EVERY DAY FOR 5 DAYS SOLD: 04/02/2019 [facility] 5-2.5 mg 03/24/2019 12:00:00 AM EST capsule 60 TAKE TWO CAPSULES BY MOUTH EVERY DAY TAKE TWO CAPSULES BY MOUTH EVERY DAY SOLD: 03/27/2019 [facility] 5-2.5 mg 03/24/2019 12:00:00 AM EST capsule 20 TAKE TWO CAPSULES BY MOUTH EVERY DAY TAKE TWO CAPSULES BY MOUTH EVERY DAY SOLD: 12/28/2019 [facility] 5-2.5 mg 03/24/2019 12:00:00 AM EST capsule 60 TAKE TWO CAPSULES BY MOUTH EVERY DAY TAKE TWO CAPSULES BY MOUTH EVERY DAY SOLD: 04/27/2019 [facility] Albuterol 0.83 MG/ML Inhalant Solution Albuterol Sulfa te (2.5 MG/3ML) 0.083% Albuterol Sulfate (2.5 MG/3ML) 0.083% 03/23/2019 12:00:00 AM EST 3.0 {ml} active Albuterol Sulfate (2.5 MG/3M L) 0.083% eCW1 ([facility]) Albuterol 0.83 MG/ML Inhalant Solution Albuterol Sulfa te (2.5 MG/3ML) 0.083% Albuterol Sulfate (2.5 MG/3ML) 0.083% 03/23/2019 12:00:00 AM EST 3.0 {ml} active Albuterol Sulfate (2.5 MG/3M L) 0.083% eCW1 ([facility]) Albuterol 0.83 MG/ML Inhalant Solution Albuterol Sulfa te (2.5 MG/3ML) 0.083% Albuterol Sulfate (2.5 MG/3ML) 0.083% 03/23/2019 12:00:00 AM EST active 3 ml eCW1 ([facility]) Albuterol 0.83 MG/ML Inhalant Solution Albuterol Sulfa te (2.5 MG/3ML) 0.083% Albuterol Sulfate (2.5 MG/3ML) 0.083% 03/23/2019 12:00:00 AM EST 3.0 {ml} active Albuterol Sulfate (2.5 MG/3M L) 0.083% eCW1 ([facility]) Albuterol 0.83 MG/ML Inhalant Solution Albuterol Sulfa te (2.5 MG/3ML) 0.083% Albuterol Sulfate (2.5 MG/3ML) 0.083% 03/23/2019 12:00:00 AM EST active 3 ml eCW1 ([facility]) 500 mg 03/23/2019 12:00:00 AM EST tablet 5 TAKE ONE TABLET BY MOUTH EVERY DAY TAKE ONE TABLET BY MOUTH EVERY DAY SOLD: 03/23/2019 [facility] Albuterol 0.83 MG/ML Inhalant Solution Albuterol Sulfa te (2.5 MG/3ML) 0.083% Albuterol Sulfate (2.5 MG/3ML) 0.083% 03/23/2019 12:00:00 AM EST 3.0 {ml} active Albuterol Sulfate (2.5 MG/3M L) 0.083% eCW1 ([facility]) Albuterol Sulfate (2.5 MG/3ML) 0.083% UNK 03/23/2019 12:00:00 AM EST active 3 ml eCW1 ([facility]) Albuterol 0.83 MG/ML Inhalant Solution Albuterol Sulfa te (2.5 MG/3ML) 0.083% Albuterol Sulfate (2.5 MG/3ML) 0.083% 03/23/2019 12:00:00 AM EST 3.0 {ml} active Albuterol Sulfate (2.5 MG/3M L) 0.083% eCW1 ([facility]) Albuterol 0.83 MG/ML Inhalant Solution Albuterol Sulfa te (2.5 MG/3ML) 0.083% Albuterol Sulfate (2.5 MG/3ML) 0.083% 03/23/2019 12:00:00 AM EST 3.0 {ml} active Albuterol Sulfate (2.5 MG/3M L) 0.083% eCW1 ([facility]) Albuterol 0.83 MG/ML Inhalant Solution Albuterol Sulfa te (2.5 MG/3ML) 0.083% Albuterol Sulfate (2.5 MG/3ML) 0.083% 03/23/2019 12:00:00 AM EST 3.0 {ml} active Albuterol Sulfate (2.5 MG/3M L) 0.083% eCW1 ([facility]) Albuterol 0.83 MG/ML Inhalant Solution Albuterol Sulfa te (2.5 MG/3ML) 0.083% Albuterol Sulfate (2.5 MG/3ML) 0.083% 03/23/2019 12:00:00 AM EST 3.0 {ml} active Albuterol Sulfate (2.5 MG/3M L) 0.083% eCW1 ([facility]) Albuterol 0.83 MG/ML Inhalant Solution Albuterol Sulfa te (2.5 MG/3ML) 0.083% Albuterol Sulfate (2.5 MG/3ML) 0.083% 03/23/2019 12:00:00 AM EST 3.0 {ml} active Albuterol Sulfate (2.5 MG/3M L) 0.083% eCW1 ([facility]) Albuterol 0.83 MG/ML Inhalant Solution Albuterol Sulfa te (2.5 MG/3ML) 0.083% Albuterol Sulfate (2.5 MG/3ML) 0.083% 03/23/2019 12:00:00 AM EST 3.0 {ml} active Albuterol Sulfate (2.5 MG/3M L) 0.083% eCW1 ([facility]) Albuterol 0.83 MG/ML Inhalant Solution Albuterol Sulfa te (2.5 MG/3ML) 0.083% Albuterol Sulfate (2.5 MG/3ML) 0.083% 03/23/2019 12:00:00 AM EST 3.0 {ml} active Albuterol Sulfate (2.5 MG/3M L) 0.083% eCW1 ([facility]) 500 mg 03/08/2019 12:00:00 AM EST tablet 5 TAKE ONE TABLET BY MOUTH EVERY DAY TAKE ONE TABLET BY MOUTH EVERY DAY SOLD: 03/08/2019 Elin Zimmerman 160-4.5 mcg/actuation 03/05/2019 12:00:00 AM EST HFA aerosol inhaler 10 INHALE 2 PUFFS TWICE A DAY IN THE MORNING& EVENING (PATIENT WILL NEED FOLLOW UP ) INHALE 2 PUFFS TWICE A DAY IN THE MORNIN G& EVENING (PATIENT WILL NEED FOLLOW UP ) SOLD: 03/05/2019 [facility] montelukast 10 MG Oral Tablet MONTELUKAST SODIUM 10/09/2018 12:0 0:00 AM EDT tablet 30 TAKE ONE TABLET BY MOUTH EVERY D AY TAKE ONE TABLET BY MOUTH EVERY DAY SOLD: 03/04/2019 [facility] Albuterol 0.83 MG/ML Inhalant Solution a lbuterol sulfate 2.5 mg /3 mL (0.083 %) inhalation solution for nebulization albuterol sulfate 2.5 mg /3 mL (0.083 %) inhalation solution for nebulization 10/05/2018 11:43:44 AM EDT 0 completed albuterol sulfate MARIAN ([facility] Insurance Providers Payer name Policy type / Coverage type Policy ID Covered libertarian ID Covered libertarian's relationship to alan Policy Alan Plan Information [facility] [id number] MEDICARE [id number] SP [id number] SELF PAY ONLY UMR [facility] [id number] [facility] [id number] Medicare [place]/[facility] Medicare Primary [id number] Self [id number] Umr Commercial [id number] Family Dependent [id number] ANSI-Commercial [id number] ANSI-Medicare Part B [id number] ANSI-Medicare Part B [id number] ANSI-Commercial [id number] Medicare [id number] Medicare Part B .[id number] [facility] .[id number] Co mmercial Insurance Co. .[id number] UMR .[id number] Commercial Insur ance Co. [id number] Medicare [id number] Medicare Part B [id number] ANSI-Commercial [id number] ANSI-Medicare Part B [id number] ANSI-Commercial [id number] ANSI-Medicare Part B [id number] MEDICARE [id number] SP [id number] [facility] [id number] SP [id number] ANSI-Commercial [id number] ANSI-Medicare Part B [id number] ANSI-Medicare Part B [id number] ANSI-Commercial [id number] ANSI-Medicare Part B [id number] ANSI-Commercial [id number] [facility] [id number] [facility] [id number] ANSI-Medicare Part B [id number] ANSI-Commercial [id number] ANSI-Medicare Part B [id number] ANSI-Commercial [id number] ANSI-Commercial [id number] ANSI-Medicare Part B [id number] ANSI-Commercial [id number] ANSI-Medicare Part B [id number] ANSI-Medicare Part B [id number] ANSI-Commercial [id number] Medicare [place] Medicare Primary [id number] Self [id number] MEDICARE [id number] A [facility] [id number] [facility] [id number] R [facility] [id number] SP [id number] MEDICARE [id number] SP [id number] A UMR O [id number] S [id number] MEDICARE C [id number] S [id number] A r Commercial [id number] Family Dependent [id number] Medicare [place]/[facility] Medicare Primary [id number] Self [id number] [place] Medigap Part B [id number] Family Dependent [id number] Medicare [facility] Medicare Primary [id number] Self [id number] POMCO [id number] HU2 [id number] [employer] [id number] HU2 [id number] [employer] [id number] HU2 [id number] [employer] [id number] HU2 [id number] [employer] PPO S [id number] S [id number] Problems, Conditions, and Diagnoses Code Display Name Description Problem Type Effective Dates Data Source(s) J32.9 [id number] Recurrent sinusitis Problem 03/23/2019 12:00 :00 AM EST eCW1 ([facility]) Surgeries/Procedures Procedure Description Date Indications Data Source(s) Immunization: Flublok Quadrivalent (18 years & older) 0.5mL IM (Influenza) 12/29/2019 12:00:00 AM EDT eCW1 ([facility]) Office Visit, Est Pt., Level 3 PC 05/17/2019 12:00:00 AM EST eCW1 ([facility]) Office Visit, Est Pt., Level 2 FC 05/17/2019 12:00:00 AM EST eCW1 ([facility]) Annual wellness visit, includes a person alized prevention plan of service (pps), subsequent visit 03/23/2019 12:00:00 AM EST eCW 1 ([facility]) Office Visit, Est Pt., Level 4 PC 03/23/2019 12:00:00 AM EST eCW1 ([facility]) Results ID Date Data Source PLZ ANKLE COMPLETE 04/12/2020 12:00:00 AM EST eCW1 ([facility]) Name Value Range Interpretation Code Description Data Caitlyn rce(s) Supporting Document(s) PLZ ANKLE COMPLETE eCW1 ([facility]) ID Date Data Source [id number] 04/03/2020 12:00:00 AM EST SABRINAMA Name Value Range Interpretation Code Description Data Caitlyn rce(s) Supporting Document(s) SARS-CoV-2 (COVID-19) RNA [Presence] in Respiratory specimen by SARATH with probe detection Not Detected [facility] This lab was ordered by [facility] and reported by [facility]. ID Date Data Source [id number] 11/22/2019 08:38:00 AM ED[facility] CONTRASTCLINICAL HISTORY: Family history of malignant neoplasm of digestive organs.COMPARISON: 12/16/2014.TECHNIQUE: Miller contrast barium enema. Fluoroscopy time 7.5 minutes. 28 saved fluoroscopic images. 14 overhead radiographs.FINDINGS: A rubber tipped catheter was inserted into the patient's rectum by the x-ray technologist. Double-contrast barium enema was performed with air and barium.The sigmoid colon was very tortuous and difficult to evaluate. A few scattered diverticula were seen.The patient had trouble holding onto the air throughout the study which limited evaluation. The study was further limited because portions of the colon were underdistended and because of tortuosity.No high-grade constricting lesion was seen in the descending colon.No high-grade constricting lesion was seen in the splenic flexure.No high-grade constricting lesion was seen in the transverse colon.The hepatic flexure was tortuous and redundant and suboptimally assessed but no obvious high-grade constricting lesion was seen.The ascending colon showed no high-grade constricting lesion. Small bowel reflux was achieved.IMPRESSION: 1. The study was suboptimal because of colonic tortuosity and redundancy, and because the patient had trouble keeping the gas in. In particular, the sigmoid colon and the hepatic flexure were very poorly assessed. No high-grade constricting lesions or large masses were suspected anywhere in the colon, but given the limitations of this study, additional workup such as CT colonography may be of benefit.2. Scattered colonic diverticula.Dictated by: TAMIE GRIER on 11/22/2019 Transcribed by: aa on <<TranscriptionDateTime1>>CDS G code: ,CDS Modifier: ,cc: Name Value Range Interpretation Code Description Data Caitlyn rce(s) Supporting Document(s) Procedure Social History Code Duration Value Status Description Data Source(s ) Smoking 04/12/2020 12:00:00 AM EST Never Smoker completed Never S moker eCW1 ([facility]) Smoking 04/12/2020 12:00:00 AM EST Never Smoker completed Never S moker eCW1 ([facility]) Smoking 03/27/2020 12:00:00 AM EST Never Smoker completed Never S moker eCW1 ([facility]) Smoking 03/27/2020 12:00:00 AM EST Never Smoker completed Never S moker eCW1 ([facility]) Smoking 01/28/2020 12:00:00 AM EST Never Smoker completed Never S moker eCW1 ([facility]) Smoking 01/28/2020 12:00:00 AM EST Never Smoker completed Never S moker eCW1 ([facility]) Smoking 01/28/2020 12:00:00 AM EST Never Smoker completed Never S moker eCW1 ([facility]) Smoking 01/28/2020 12:00:00 AM EST Never Smoker completed Never S moker eCW1 ([facility]) Smoking 10/05/2019 12:00:00 AM EDT Never Smoker completed Never S moker eCW1 ([facility]) Smoking 10/05/2019 12:00:00 AM EDT Never Smoker completed Never S moker eCW1 ([facility]) Smoking 10/05/2019 12:00:00 AM EDT Never Smoker completed Never S moker eCW1 ([facility]) Vital Signs ID Date Data Source UNK Name Value Range Interpretation Code Description Data Source(s) Diastolic blood pressure 78 mm[Hg] 78 mm[Hg] eCW1 ([facility]) Systolic blood pressure 118 mm[Hg] 118 mm[Hg] e CW1 ([facility]) Body temperature 98.3 [degF] 98.3 [degF] eCW1 ( [facility]) Respiratory rate 18 /min 18 /min eCW1 ([facility]) Heart rate 93 /min 93 /min eCW1 ([facility]) Body mass index (BMI) [Ratio] 28.04 kg/m2 28.04 kg/m2 eCW1 ([facility]) Body height 60.5 [in_i] 60.5 [in_i] eCW1 ([facility]) Body weight 146 [lb_av] 146 [lb_av] eCW1 ([facility]) Diastolic blood pressure 78 mm[Hg] 78 mm[Hg] eCW1 ([facility]) Systolic blood pressure 128 mm[Hg] 128 mm[Hg] e CW1 ([facility]) Body temperature 99.4 [degF] 99.4 [degF] eCW1 ( [facility]) Respiratory rate 18 /min 18 /min eCW1 ([facility]) Heart rate 100 /min 100 /min eCW1 ([facility]) Body mass index (BMI) [Ratio] 28.35 kg/m2 28.35 kg/m2 eCW1 ([facility]) Body height 60.5 [in_i] 60.5 [in_i] eCW1 ([facility]) Body weight 147.6 [lb_av] 147.6 [lb_av] eCW1 ([facility]) Diastolic blood pressure 66 mm[Hg] 66 mm[Hg] eCW1 ([facility]) Systolic blood pressure 132 mm[Hg] 132 mm[Hg] e CW1 ([facility]) Body mass index (BMI) [Ratio] 28.23 kg/m2 28.23 kg/m2 eCW1 ([facility]) Body height 60.5 [in_i] 60.5 [in_i] eCW1 ([facility]) Body weight 66.68 kg 66.68 kg eCW1 ([facility]) Body weight 147 [lb_av] 147 [lb_av] eCW1 ([facility]) Body mass index (BMI) [Ratio] 28.7 kg/m2 28.7 k g/m2 MEDENT ([facility]) Body weight 152.00 [lb_av] 152.00 [lb_av] MEDEN T ([facility]) Body height 61 [in_i] 61 [in_i] MEDENT ([facility]) 5'1" Respiratory rate 18 /min 18 /min [facility] ( [facility]) Body temperature 97.6 [degF] 97.6 [degF] [facility] ([facility]) Heart rate 87 /min 87 /min [facility] ([facility]) Diastolic blood pressure 72 mm[Hg] 72 mm[Hg] MED[facility] ([facility]) Systolic blood pressure 140 mm[Hg] 140 mm[Hg] M EDENT ([facility]) Diastolic blood pressure 58 mm[Hg] 58 mm[Hg] eCW1 ([facility]) Systolic blood pressure 122 mm[Hg] 122 mm[Hg] e CW1 ([facility]) Body temperature 98.2 [degF] 98.2 [degF] eCW1 ( [facility]) Respiratory rate 18 /min 18 /min eCW1 ([facility]) Heart rate 89 /min 89 /min eCW1 ([facility]) Body mass index (BMI) [Ratio] 29.73 kg/m2 29.73 kg/m2 eCW1 ([facility]) Body height 60.5 [in_i] 60.5 [in_i] eCW1 ([facility]) Body weight 154.8 [lb_av] 154.8 [lb_av] eCW1 ([facility]) Diastolic blood pressure 78 mm[Hg] 78 mm[Hg] eCW1 ([facility]) Systolic blood pressure 128 mm[Hg] 128 mm[Hg] e CW1 ([facility]) Body temperature 98.3 [degF] 98.3 [degF] eCW1 ( [facility]) Respiratory rate 18 /min 18 /min eCW1 ([facility]) Heart rate 99 /min 99 /min eCW1 ([facility]) Body mass index (BMI) [Ratio] 32.38 kg/m2 32.38 kg/m2 eCW1 ([facility]) Body height 60.5 [in_us] 60.5 [in_us] eCW[facility] Body weight Measured 168.6 [lb_av] 168.6 [lb_av ] eCW1 ([facility]) Diastolic blood pressure 78 mm[Hg] 78 mm[Hg] eCW1 ([facility]) Systolic blood pressure 126 mm[Hg] 126 mm[Hg] e CW1 ([facility]) Body temperature 98.1 [degF] 98.1 [degF] eCW1 ( [facility]) Respiratory rate 18 /min 18 /min eCW1 ([facility]) Heart rate 91 /min 91 /min eCW1 ([facility]) Body mass index (BMI) [Ratio] 32.84 kg/m2 32.84 kg/m2 eCW1 ([facility]) Body height 60.5 [in_us] 60.5 [in_us] eCW1 ([facility] Body weight Measured 171.0 [lb_av] 171.0 [lb_av ] eCW1 ([facility]) Diastolic blood pressure 78 mm[Hg] 78 mm[Hg] eCW1 ([facility]) Systolic blood pressure 112 mm[Hg] 112 mm[Hg] e CW1 ([facility]) Body temperature 98.1 [degF] 98.1 [degF] eCW1 ( [facility]) Respiratory rate 18 /min 18 /min eCW1 ([facility]) Heart rate 103 /min 103 /min eCW1 ([facility]) Body mass index (BMI) [Ratio] 32.65 kg/m2 32.65 kg/m2 eCW1 ([facility]) Body height 60.5 [in_us] 60.5 [in_us] eCW1 [facility] Body weight Measured 170 [lb_av] 170 [lb_av] eC W1 ([facility]) Patient Treatment Plan of Care Planned Activity Planned Date Details Description Data Source (s) Azithromycin 500 MG Oral Tablet 03/27/2020 12:00:00 AM EST eCW1 ([facility]) Azithromycin 500 MG Oral Tablet 03/27/2020 12:00:00 AM EST eCW1 ([facility]) Azithromycin 500 MG Oral Tablet 03/27/2020 12:00:00 AM EST eCW1 ([facility]) Azithromycin 500 MG Oral Tablet 03/27/2020 12:00:00 AM EST eCW1 ([facility]) Nebulizer/Tubing/Mouthpiece - 10/13/2019 12:00:00 AM EDT eCW1 ([facility]) Nebulizer/Tubing/Mouthpiece - 10/13/2019 12:00:00 AM EDT eCW1 ([facility]) Nebulizer/Tubing/Mouthpiece - 10/13/2019 12:00:00 AM EDT eCW1 ([facility]) Levofloxacin 500 MG Oral Tablet [Levaquin] 05/17/2019 12:00:[address] eCW1 ([facility]) Zithromax 500 MG 04/02/2019 12:00:00 AM EST eCW1 ([facility]) Albuterol 0.83 MG/ML Inhalant Solution 03/23/2019 12:00:00 AM EST eCW1 ([facility]) Albuterol 0.83 MG/ML Inhalant Solution 10/05/2018 11:43:44 AM EDT MARIAN ([facility])
[2020-04-23] MEDS ORDERED: OMEP40CA97 PO (06:31)
[2020-04-23] MEDS ORDERED: NS 500 ML IV ONE (06:45)
[2020-04-23] MEDS ORDERED: METOCLOPRAMIDE INJ 10MG/2ML VIAL (J2765 PER 1) IV ONE (07:00)
[2020-04-23 07:04] LABS: BASO % 0.5 % (0.0-1.0); EOS # 0.1 10^3/uL (0.0-0.5); EOS % 2.5 % (0.0-3.0); HEMATOCRIT 35.8 % (36.0-47.0); HEMOGLOBIN 11.9 g/dl (12.0-15.5); LYMPH # 1.2 10^3/uL (1.5-5.0); LYMPH % 26.4 % (24.0-44.0); MEAN CORPUSCULAR HEMOGLOBIN 31.6 pg (27.0-33.0); MEAN CORPUSCULAR HGB CONC 33.2 g/dl (32.0-36.5); MONO # 0.3 10^3/uL (0.0-0.8); MONO % 6.7 % (0.0-5.0); NEUTROPHILS # 2.8 10^3/uL (1.5-8.5); NEUTROPHILS % 63.9 % (36.0-66.0); PLATELET COUNT, AUTOMATED 150 10^3/uL (150-450); RED BLOOD COUNT 3.77 10^6/uL (4.00-5.40); WHITE BLOOD COUNT 4.4 10^3/uL (4.0-10.0)
[2020-04-23 07:18] LABS: INR 0.97; PROTHROMBIN TIME 13.1 SECONDS (12.5-14.3)
--- OUTSIDE RECORDS SUMMARY | 2020-04-23 07:18 | CCD ---
Author Author [facility] Organization [facility] Address Unknown Phone Unavailable Care Team Providers Care Wet Process Assistant Head Miller Name Role Phone Ariella Gracia MD Unavailable [...] Ariella Huizar MD Unavailable Unavailable Samia, Ariella Huiazr MD Unavailable Unavailable Samia, Ariella Huizar MD [...] A Bhupendra MD Unavailable Unavailable Samia, A Buhpendra MD Unavailable Unavailable Samia, A Bhupendra MD [...] is protected by Article 27-F of the [place] Public Health law. If you continue you may have access to information: Regarding HIV / AIDS; Provided by facilities licensed or operated by the [place] Office of Mental Health; or Provided by the [place] [facility] Office for People With Developmental Disabilities. If such information is present, then the following [place] [facility] mandated warning applies: This information has [...] law may result in a fine or detention sentence or both. A general authorization for the release of medical or other information is NOT sufficient authorization for further disc losure. Allergies and Adverse Reactions Type Description Substance Reaction Status Data Source(s ) Drug allergy Doxycycline Hyclate Doxycycline unknown-Pt does not r emember. Active eCW1 ([facility]) Drug allergy Morphine Sulfate Morphine very sick Active eCW1 ( [facility]) Drug allergy Meclizine HCl Meclizine Patient does not recall Active eCW1 ([facility]) Drug allergy MethylPREDNISolone Methylprednisolone facial burning Active eCW1 ([facility]) Drug allergy Guaifenesin Drug allergy Patient does not recall reactio n Active eCW1 ([facility]) Stadol Stadol Stadol hallucinations Active eCW1 ([facility]) PredniSONE PredniSONE PredniSONE facial swelling and reddness Active eCW1 ([facility]) fish/nuts fish/nuts fish/nuts Anaphylaxis Active eCW1 ([facility]) Ceftin Ceftin Cefuroxime 25 MG/ML Oral Suspension [Ceftin] gi upset Active eCW1 ([facility]) sulfa sulfa sulfa reddness,rash Active eCW1 ([facility]) Bee sting Bee sting Bee sting Anaphylaxis Active eCW1 ([facility]) dust mites, mold, mildew dust mites, mold, mildew dust mites, mo ld, mildew stuffiness, wheezing Active eCW1 ([facility]) Stadol Stadol Stadol hallucinations Active eCW1 ([facility]) PredniSONE PredniSONE PredniSONE facial swelling and reddness Active eCW1 ([facility]) fish/nuts fish/nuts fish/nuts Anaphylaxis Active eCW1 ([facility]) Ceftin Ceftin Ceftin gi upset Active eCW1 ([facility]) sulfa sulfa sulfa reddness,rash Active eCW1 ([facility]) Bee sting Bee sting Bee sting Anaphylaxis Active eCW1 ([facility]) dust mites, mold, mildew dust mites, mold, mildew dust mites, mo ld, mildew stuffiness, wheezing Active eCW1 ([facility]) Stadol Stadol Stadol hallucinations Active eCW1 ([facility]) PredniSONE PredniSONE PredniSONE facial swelling and reddness Active eCW1 ([facility]) fish/nuts fish/nuts fish/nuts Anaphylaxis Active eCW1 ([facility]) Ceftin Ceftin Cefuroxime 25 MG/ML Oral Suspension [Ceftin] gi upset Active eCW1 ([facility]) sulfa sulfa sulfa reddness,rash Active eCW1 ([facility]) Bee sting Bee sting Bee sting Anaphylaxis Active eCW1 ([facility]) dust mites, mold, mildew dust mites, mold, mildew dust mites, mo ld, mildew stuffiness, wheezing Active eCW1 ([facility]) Family History Family Member Name Family Member Gender Family Member Status Date o f Status Description Data Source(s) Unknown Unknown Problem MEDENT ([facility], ) Encounters Encounter Providers Location Date Indications Data Source(s ) Outpatient [address] [facility] [place] [address] 04/12/2020 12:00:00 AM EST eCW1 ([facility]) Unknown [address] [facility] [place] [address] 04/12/2020 12:00:00 AM EST eCW1 ([facility]) Unknown [address] [facility] [place] [address] 04/03/2020 12:00:00 AM EST eCW1 ([facility]) [place] [address] [facility] [place] [address] 03/27/2020 12:00:00 AM EST eCW1 ([facility]) Unknown [address] [facility] [place] [address] 03/09/2020 12:00:00 AM EST eCW1 ([facility]) Unknown [address] 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 [address] [place] [address] 01/28/2020 12:00:00 AM EST eCW1 ([facility]) [place] [address] [facility] [place] [address] 12/29/2019 12:00:00 AM EDT [facility] Outpatient Referrer: Bhupendra Gracia MD 11/09/2019 12:54:30 P M EDT [facility] Outpatient Attender: Bhupendra Gracia MD [place] 11/09/2019 12:30:00 P M EDT MEDENT ([facility]) Unknown [address] [facility] [address] 10/13/2019 12:00:00 AM EDT [facility]CW1 [facility]) Outpatient [address] [facility] [place] [address] 10/05/2019 12:00:00 AM EDT [facility]CW1 [facility]) [facility] [address] [facility] [place] [address] 05/17/2019 12:00:00 AM EST [facility] [place] [address] [facility] [place] [address] 04/05/2019 12:00:00 AM EST [facility]CW1 [facility] [address] [place] [address] N [place] [address] 04/02/2019 12:00:00 AM EST [facility]CW[facility] [address] [facility] [place] [address] 03/23/2019 12:00:00 AM EST [facility]CW[facility] [address] [facility] [place] [address] 03/23/2019 12:00:00 AM EST eCW1 ([facility]) [facility] [address] [facility] [place] [address] 03/08/2019 12:00:00 AM EST eCW1 ([facility]) Immunizations Vaccine Date Status Description Data Source(s) influenza, recombinant, quadrIvalent,injectable, prese rvative free 12/29/2019 08:32:00 AM EDT completed eCW1 ([facility]) influenza, recombinant, quadrIvalent,injectable, prese rvative free 12/29/2019 08:32:00 AM EDT completed eCW1 ([facility]) influenza, recombinant, quadrIvalent,injectable, prese rvative free 12/29/2019 08:32:00 AM EDT completed eCW1 ([facility]) influenza, recombinant, quadrIvalent,injectable, prese rvative free 12/29/2019 08:32:00 AM EDT completed eCW1 ([facility]) influenza, recombinant, quadrIvalent,injectable, prese rvative free 12/29/2019 08:32:00 AM EDT completed eCW1 ([facility]) influenza, recombinant, quadrIvalent,injectable, prese rvative free 12/29/2019 08:32:00 AM EDT completed eCW1 ([facility]) influenza, recombinant, quadrIvalent,injectable, prese rvative free 12/29/2019 08:32:00 AM EDT completed eCW1 ([facility]) influenza, recombinant, quadrIvalent,injectable, prese rvative free 12/29/2019 08:32:00 AM EDT completed eCW1 ([facility]) influenza, recombinant, quadrIvalent,injectable, prese rvative free 12/29/2019 08:32:00 AM EDT completed eCW1 ([facility]) Medications Medication Brand Name Start Date Product Form Dose Route Admi nistrative Instructions Pharmacy Instructions Status Indications Reaction Description Data Source(s) 100 mcg/0.5 mL 04/14/2020 12:00:00 AM EST suspension 0 INJECT BY [facility] (FIRST DOSE) INJECT BY [facility] (FIRST DOSE) SOLD: 04/14/2020 [facility] 5-2.5 [...] AM EST active Azithromycin 500 MG eCW1 ([facility]) Azithromycin 500 MG Oral Tablet Azithromycin 500 MG 03/27/2020 1 2:00:00 AM EST active Azithromycin 500 MG eCW1 ([facility]) Azithromycin 500 MG Oral Tablet Azithromycin 500 MG 03/27/2020 1 2:00:00 AM EST 1.0 {tablet} active Azithromyci n 500 MG eCW1 ([facility]) Azithromycin 500 MG Oral Tablet Azithromycin 500 MG 03/27/2020 1 2:00:00 AM EST 1.0 {tablet} active Azithromyci n 500 MG eCW1 ([facility]) 500 mg 03/27/2020 12:00:00 AM EST tablet [...] DOSE = 2 CAPSULES SOLD: 03/11/2020 Elin Zimmerman Nebulizer/Tubing/Mouthpiece - Nebulizer/Tubing/Mouthpiece - 10/13/2019 12:00:00 AM EDT active Nebulizer/Tubing/ Mouthpiece - eCW1 ([facility]) Nebulizer/Tubing/Mouthpiece - Nebulizer/Tubing/Mouthpiece - 10/13/2019 12:00:00 AM EDT active Nebulizer/Tubing/ Mouthpiece - eCW1 ([facility]) Nebulizer/Tubing/Mouthpiece - Nebulizer/Tubing/Mouthpiece - 10/13/2019 12:00:00 AM EDT active Nebulizer/Tubing/ Mouthpiece - eCW1 ([facility]) Nebulizer/Tubing/Mouthpiece - Nebulizer/Tubing/Mouthpiece - 10/13/2019 12:00:00 AM EDT active Nebulizer/Tubing/ Mouthpiece - eCW1 ([facility]) Nebulizer/Tubing/Mouthpiece - Nebulizer/Tubing/Mouthpiece - 10/13/2019 12:00:00 AM EDT active Nebulizer/Tubing/ Mouthpiece - eCW1 ([facility]) Nebulizer/Tubing/Mouthpiece - Nebulizer/Tubing/Mouthpiece - 10/13/2019 12:00:00 AM EDT active Nebulizer/Tubing/ Mouthpiece - eCW1 ([facility]) Nebulizer/Tubing/Mouthpiece - Nebulizer/Tubing/Mouthpiece - 10/13/2019 12:00:00 AM EDT active Nebulizer/Tubing/ Mouthpiece - eCW1 ([facility]) Nebulizer/Tubing/Mouthpiece - Nebulizer/Tubing/Mouthpiece - 10/13/2019 12:00:00 AM EDT active Nebulizer/Tubing/ Mouthpiece - eCW1 ([facility]) Nebulizer/Tubing/Mouthpiece - Nebulizer/Tubing/Mouthpiece - 10/13/2019 12:00:00 AM EDT active Nebulizer/Tubing/ Mouthpiece - eCW1 ([facility]) Nebulizer/Tubing/Mouthpiece - Nebulizer/Tubing/Mouthpiece - 10/13/2019 12:00:00 AM EDT active Nebulizer/Tubing/ Mouthpiece - eCW1 ([facility]) Nebulizer/Tubing/Mouthpiece - Nebulizer/Tubing/Mouthpiece - 10/13/2019 12:00:00 AM EDT active Nebulizer/Tubing/ Mouthpiece - eCW1 ([facility]) 1 gram 05/18/2019 12:00:00 AM EST tablet 12 TAKE TWO TABLETS BY MOUTH EVERY 12 HOURS NEEDED FOR COLD SORE FOR 1 DAY TAKE TWO TABLETS BY MOUTH EVERY 12 HOURS NEEDED FOR COLD SORE FOR 1 DAY SOLD: 05/23/2019 [facility] Levofloxacin 500 MG Oral Tablet [Levaquin] Levaquin 500 MG L evaquin 500 MG 05/17/2019 12:00:00 AM EST active 1 tablet eCW1 ([facility]) 500 mg 05/17/2019 12:00:00 AM EST tablet [...] AM EST a ctive 1 tablet eCW1 ([facility]) 500 mg 04/02/2019 12:00:00 AM EST tablet [...] Albuterol Sulfate (2.5 MG/3M L) 0.083% eCW1 ([facility]) Albuterol 0.83 MG/ML Inhalant Solution Albuterol Sulfa te (2.5 MG/3ML) 0.083% Albuterol Sulfate (2.5 MG/3ML) 0.083% 03/23/2019 12:00:00 AM EST 3.0 {ml} active Albuterol Sulfate (2.5 MG/3M L) 0.083% eCW1 ([facility]) Albuterol 0.83 MG/ML Inhalant Solution Albuterol Sulfa te (2.5 MG/3ML) 0.083% Albuterol Sulfate (2.5 MG/3ML) 0.083% 03/23/2019 12:00:00 AM EST active 3 ml eCW1 ([facility]) Albuterol 0.83 MG/ML Inhalant Solution Albuterol Sulfa te (2.5 MG/3ML) 0.083% Albuterol Sulfate (2.5 MG/3ML) 0.083% 03/23/2019 12:00:00 AM EST 3.0 {ml} active Albuterol Sulfate (2.5 MG/3M L) 0.083% eCW1 ([facility]) Albuterol 0.83 MG/ML Inhalant Solution Albuterol Sulfa te (2.5 MG/3ML) 0.083% Albuterol Sulfate (2.5 MG/3ML) 0.083% 03/23/2019 12:00:00 AM EST active 3 ml eCW1 ([facility]) 500 mg 03/23/2019 12:00:00 AM EST tablet 5 TAKE ONE TABLET BY MOUTH EVERY DAY TAKE ONE TABLET BY MOUTH EVERY DAY SOLD: 03/23/2019 [facility] Albuterol 0.83 MG/ML Inhalant Solution Albuterol Sulfa te (2.5 MG/3ML) 0.083% Albuterol Sulfate (2.5 MG/3ML) 0.083% 03/23/2019 12:00:00 AM EST 3.0 {ml} active Albuterol Sulfate (2.5 MG/3M L) 0.083% eCW1 ([facility]) Albuterol Sulfate (2.5 MG/3ML) 0.083% UNK 03/23/2019 12:00:00 AM EST active 3 ml eCW1 ([facility]) Albuterol 0.83 MG/ML Inhalant Solution Albuterol Sulfa te (2.5 MG/3ML) 0.083% Albuterol Sulfate (2.5 MG/3ML) 0.083% 03/23/2019 12:00:00 AM EST 3.0 {ml} active Albuterol Sulfate (2.5 MG/3M L) 0.083% eCW1 ([facility]) Albuterol 0.83 MG/ML Inhalant Solution Albuterol Sulfa te (2.5 MG/3ML) 0.083% Albuterol Sulfate (2.5 MG/3ML) 0.083% 03/23/2019 12:00:00 AM EST 3.0 {ml} active Albuterol Sulfate (2.5 MG/3M L) 0.083% eCW1 ([facility]) Albuterol 0.83 MG/ML Inhalant Solution Albuterol Sulfa te (2.5 MG/3ML) 0.083% Albuterol Sulfate (2.5 MG/3ML) 0.083% 03/23/2019 12:00:00 AM EST 3.0 {ml} active Albuterol Sulfate (2.5 MG/3M L) 0.083% eCW1 ([facility]) Albuterol 0.83 MG/ML Inhalant Solution Albuterol Sulfa te (2.5 MG/3ML) 0.083% Albuterol Sulfate (2.5 MG/3ML) 0.083% 03/23/2019 12:00:00 AM EST 3.0 {ml} active Albuterol Sulfate (2.5 MG/3M L) 0.083% eCW1 ([facility]) Albuterol 0.83 MG/ML Inhalant Solution Albuterol Sulfa te (2.5 MG/3ML) 0.083% Albuterol Sulfate (2.5 MG/3ML) 0.083% 03/23/2019 12:00:00 AM EST 3.0 {ml} active Albuterol Sulfate (2.5 MG/3M L) 0.083% eCW1 ([facility]) Albuterol 0.83 MG/ML Inhalant Solution Albuterol Sulfa te (2.5 MG/3ML) 0.083% Albuterol Sulfate (2.5 MG/3ML) 0.083% 03/23/2019 12:00:00 AM EST 3.0 {ml} active Albuterol Sulfate (2.5 MG/3M L) 0.083% eCW1 ([facility]) Albuterol 0.83 MG/ML Inhalant Solution Albuterol Sulfa te (2.5 MG/3ML) 0.083% Albuterol Sulfate (2.5 MG/3ML) 0.083% 03/23/2019 12:00:00 AM EST 3.0 {ml} active Albuterol Sulfate (2.5 MG/3M L) 0.083% eCW1 ([facility]) 500 mg 03/08/2019 12:00:00 AM EST tablet 5 TAKE ONE TABLET BY MOUTH EVERY DAY TAKE ONE TABLET BY MOUTH EVERY DAY SOLD: 03/08/2019 Elin Zimemrman 160-4.5 mcg/actuation 03/05/2019 12:00:00 AM EST HFA aerosol inhaler 10 INHALE 2 PUFFS TWICE A DAY IN THE MORNING& EVENING (PATIENT WILL NEED FOLLOW UP ) INHALE 2 PUFFS TWICE A DAY IN THE MORNIN G& EVENING (PATIENT WILL NEED FOLLOW UP ) SOLD: 03/05/2019 Nitesh Zimmerman montelukast 10 MG Oral Tablet MONTELUKAST SODIUM [...] type / Coverage type Policy ID Covered green party ID Covered green party's relationship to alan Policy Alan Plan Information [facility] [id number] MEDICARE [id number] SP [id number] UMR [facility] [id number] [facility] [id number] SELF PAY ONLY Medicare [place]/[facility] Medicare Primary [id number] Self [id number] Umr Commercial [id number] Family Dependent [id number] ANSI-Commercial [id number] ANSI-Medicare Part B [id number] ANSI-Medicare Part B [id number] ANSI-Commercial [id number] Medicare [id number] Medicare Part B [id number] [facility] .[id number] Co mmercial Insurance Co. .[id number] UMR .[id number] Commercial Insur ance Co. [id number] Medicare [id number] Medicare Part B [id number] ANSI-Commercial [id number] ANSI-Medicare Part B [id number] ANSI-Commercial [id number] ANSI-Medicare Part B [id number] MEDICARE [id number] SP [id number] [facility] [id number] SP [id number] ANSI-Commercial [id number] ANSI-Medicare Part B [id number] ANSI-Medicare Part B [id number] ANSI-Commercial [id number] ANSI-Medicare Part B [id number] ANSI-Commercial [id number] [facility] [id number] [facility] [id number] ANSI-Medicare Part B [id number] ANSI-Commercial [id number] ANSI-Medicare Part B [id number] ANSI-Commercial [id number] ANSI-Commercial [id number] ANSI-Medicare Part B [id number] ANSI-Commercial [id number] ANSI-Medicare Part B [id number] ANSI-Medicare Part B [id number] ANSI-Commercial [id number] Medicare [place] Medicare Primary [id number] Self [id number] MEDICARE [id number] A [facility] [id number] [facility] [id number] R [facility] [id number] SP [id number] MEDICARE [id number] SP [id number] A UMR O [id number] S [id number] MEDICARE C [id number] S [id number] A r Commercial [id number] Family Dependent [id number] Medicare [facility] Medicare Primary [id number] Self [id number] [place] Medigap Part B [id number] Family Dependent [id number] Medicare [facility] Medicare Primary [id number] Self [id number] [employer] [id number] HU2 [id number] [employer] [id number] HU2 [id number] [employer] [id number] HU2 [id number] [employer] [id number] HU2 [id number] [employer] PPO S [id number] S [id number] Problems, Conditions, and Diagnoses Code Display Name Description Problem Type Effective Dates Data Source(s) J32.9 843999580 Recurrent sinusitis Problem 03/23/2019 12:00 :00 AM EST eCW1 ([facility]) Surgeries/Procedures Procedure Description Date Indications Data Source(s) Immunization: Flublok Quadrivalent (18 years & older) 0.5mL IM (Influenza) 12/29/2019 12:00:00 AM EDT eCW1 ([facility]) Office Visit, Est Pt., Level 3 PC 05/17/2019 12:00:00 AM EST eCW1 ([facility]) Office Visit, Est Pt., Level 2 FC 05/17/2019 12:00:00 AM EST eCW1 ([facility]) Annual wellness visit, includes a person alized prevention plan of service (pps), subsequent visit 03/23/2019 12:00:00 AM EST eCW 1 ([facility]) Office Visit, Est Pt., Level 4 PC 03/23/2019 12:00:00 AM EST eCW1 ([facility]) Results ID Date Data Source PLZ ANKLE COMPLETE 04/12/2020 12:00:00 AM EST eCW1 ([facility]) Name Value Range Interpretation Code Description Data Caitlyn rce(s) Supporting Document(s) PLZ ANKLE COMPLETE eCW1 ([facility]) ID Date Data Source [id number] 04/03/2020 12:00:00 AM EST [facility] Name Value Range Interpretation Code Description Data Caitlyn rce(s) Supporting Document(s) SARS-CoV-2 (COVID-19) RNA [Presence] in Respiratory specimen by SARATH with probe detection Not Detected [facility] This lab was ordered by [facility] and reported by [employer]. ID Date Data Source [id number] 11/22/2019 08:38:00 AM EDT [facility] W AIR CONTRASTCLINICAL HISTORY: Family [...] Never Smoker completed Never S moker eCW1 ([facility]) Smoking 04/12/2020 12:00:00 AM EST Never Smoker completed Never S moker eCW1 ([facility]) Smoking 03/27/2020 12:00:00 AM EST Never Smoker completed Never S moker eCW1 ([facility]) Smoking 03/27/2020 12:00:00 AM EST Never Smoker completed Never S moker eCW1 ([facility]) Smoking 01/28/2020 12:00:00 AM EST Never Smoker completed Never S moker eCW1 ([facility]) Smoking 01/28/2020 12:00:00 AM EST Never Smoker completed Never S moker eCW1 ([facility]) Smoking 01/28/2020 12:00:00 AM EST Never Smoker completed Never S moker eCW1 ([facility]) Smoking 01/28/2020 12:00:00 AM EST Never Smoker completed Never S moker eCW1 ([facility]) Smoking 10/05/2019 12:00:00 AM EDT Never Smoker completed Never S moker eCW1 ([facility]) Smoking 10/05/2019 12:00:00 AM EDT Never Smoker completed Never S moker eCW1 ([facility]) Smoking 10/05/2019 12:00:00 AM EDT Never Smoker completed Never S moker eCW1 ([facility]) Vital Signs ID Date Data Source UNK Name Value Range Interpretation Code Description Data Source(s) Diastolic blood pressure 78 mm[Hg] 78 mm[Hg] eCW1 ([facility]) Systolic blood pressure 118 mm[Hg] 118 mm[Hg] e CW1 ([facility]) Body temperature 98.3 [degF] 98.3 [degF] eCW1 ( [facility]) Respiratory rate 18 /min 18 /min eCW1 ([facility]) Heart rate 93 /min 93 /min eCW1 ([facility]) Body mass index (BMI) [Ratio] 28.04 kg/m2 28.04 kg/m2 eCW1 ([facility]) Body height 60.5 [in_i] 60.5 [in_i] eCW1 ([facility]) Body weight 146 [lb_av] 146 [lb_av] eCW1 ([facility]) Diastolic blood pressure 78 mm[Hg] 78 mm[Hg] eCW1 ([facility]) Systolic blood pressure 128 mm[Hg] 128 mm[Hg] e CW1 ([facility]) Body temperature 99.4 [degF] 99.4 [degF] eCW1 ( [facility]) Respiratory rate 18 /min 18 /min eCW1 ([facility]) Heart rate 100 /min 100 /min eCW1 ([facility]) Body mass index (BMI) [Ratio] 28.35 kg/m2 28.35 kg/m2 eCW1 ([facility]) Body height 60.5 [in_i] 60.5 [in_i] eCW1 ([facility]) Body weight 147.6 [lb_av] 147.6 [lb_av] eCW1 ([facility]) Diastolic blood pressure 66 mm[Hg] 66 mm[Hg] eCW1 ([facility]) Systolic blood pressure 132 mm[Hg] 132 mm[Hg] e CW1 ([facility]) Body mass index (BMI) [Ratio] 28.23 kg/m2 28.23 kg/m2 eCW1 ([facility]) Body height 60.5 [in_i] 60.5 [in_i] eCW1 ([facility]) Body weight 66.68 kg 66.68 kg eCW1 ([facility]) Body weight 147 [lb_av] 147 [lb_av] eCW1 ([facility]) Body mass index (BMI) [Ratio] 28.7 kg/m2 [...] blood pressure 58 mm[Hg] 58 mm[Hg] eCW1 ([facility]) Systolic blood pressure 122 mm[Hg] 122 mm[Hg] e CW1 ([facility]) Body temperature 98.2 [degF] 98.2 [degF] eCW1 ( [facility] [place]) Respiratory rate 18 /min 18 /min eCW1 ([facility]) Heart rate 89 /min 89 /min eCW1 ([facility]) Body mass index (BMI) [Ratio] 29.73 kg/m2 29.73 kg/m2 eCW1 ([facility]) Body height 60.5 [in_i] 60.5 [in_i] eCW1 ([facility]) Body weight 154.8 [lb_av] 154.8 [lb_av] eCW1 ([facility]) Diastolic blood pressure 78 mm[Hg] 78 mm[Hg] eCW1 ([facility]) Systolic blood pressure 128 mm[Hg] 128 mm[Hg] e CW1 ([facility]) Body temperature 98.3 [degF] 98.3 [degF] eCW1 ( [facility]) Respiratory rate 18 /min 18 /min eCW1 ([facility]) Heart rate 99 /min 99 /min eCW1 ([facility]) Body mass index (BMI) [Ratio] 32.38 kg/m2 32.38 kg/m2 eCW1 ([facility]) Body height 60.5 [in_us] 60.5 [in_us] eCW1 ([facility]) Body weight Measured 168.6 [lb_av] 168.6 [lb_av ] eCW1 ([facility]) Diastolic blood pressure 78 mm[Hg] 78 mm[Hg] eCW1 ([facility]) Systolic blood pressure 126 mm[Hg] 126 mm[Hg] e CW1 ([facility]) Body temperature 98.1 [degF] 98.1 [degF] eCW1 ( [facility]) Respiratory rate 18 /min 18 /min eCW1 ([facility]) Heart rate 91 /min 91 /min eCW1 ([facility]) Body mass index (BMI) [Ratio] 32.84 kg/m2 32.84 kg/m2 eCW1 ([facility]) Body height 60.5 [in_us] 60.5 [in_us] eCW1 ([facility]) Body weight Measured 171.0 [lb_av] 171.0 [lb_av ] eCW1 ([facility]) Diastolic blood pressure 78 mm[Hg] 78 mm[Hg] eCW1 ([facility]) Systolic blood pressure 112 mm[Hg] 112 mm[Hg] e CW1 ([facility]) Body temperature 98.1 [degF] 98.1 [degF] eCW1 ( [facility]) Respiratory rate 18 /min 18 /min eCW1 ([facility]) Heart rate 103 /min 103 /min eCW1 ([facility]) Body mass index (BMI) [Ratio] 32.65 kg/m2 32.65 kg/m2 W1 ([facility]) Body height 60.5 [in_us] 60.5 [in_us] eCW1 ([facility]) Body weight Measured 170 [lb_av] 170 [lb_av] eC W1 ([facility]) Patient Treatment Plan of Care Planned Activity Planned Date Details Description Data Source (s) Azithromycin 500 MG Oral Tablet 03/27/2020 12:00:00 AM EST eCW1 ([facility]) Azithromycin 500 MG Oral Tablet 03/27/2020 12:00:00 AM EST eCW1 ([facility]) Azithromycin 500 MG Oral Tablet 03/27/2020 12:00:00 AM EST eCW1 ([facility]) Azithromycin 500 MG Oral Tablet 03/27/2020 12:00:00 AM EST eCW1 ([facility]) Nebulizer/Tubing/Mouthpiece - 10/13/2019 12:00:00 AM EDT eCW1 ([facility]) Nebulizer/Tubing/Mouthpiece - 10/13/2019 12:00:00 AM EDT eCW1 ([facility]) Nebulizer/Tubing/Mouthpiece - 10/13/2019 12:00:00 AM EDT eCW1 ([facility]) Levofloxacin 500 MG Oral Tablet [Levaquin] 05/17/2019 12:00:[address] eCW1 ([facility]) Zithromax 500 MG 04/02/2019 12:00:00 AM EST eCW1 ([facility]) Albuterol 0.83 MG/ML Inhalant Solution 03/23/2019 12:00:00 AM EST eCW1 ([facility]) Albuterol 0.83 MG/ML Inhalant Solution 10/05/2018 11:43:44 AM EDT MARIAN ([facility])
[2020-04-23 07:19] LABS: PARTIAL THROMBOPLASTIN TIME 27.7 SECONDS (24.2-38.5)
--- NOTE | 2020-04-23 07:23 | REPVR ---
PROCEDURE INFORMATION: Exam: CT Head Without Contrast Exam date and time: 04/23/2020 6:53 AM Age: 74 years old Clinical indication: Syncope and collapse TECHNIQUE: Imaging protocol: Computed tomography of the head without contrast. Radiation optimization: All CT scans at this facility use at least one of these dose optimization techniques: automated exposure control; mA and/or kV adjustment per patient size (includes targeted exams where dose is matched to clinical indication); or iterative reconstruction. COMPARISON: No relevant prior studies available. FINDINGS: Brain: Normal. No hemorrhage. Unremarkable white matter. No mass effect. Cerebral ventricles: No ventriculomegaly. Bones/joints: Unremarkable. No acute fracture. Paranasal sinuses: Visualized sinuses are unremarkable. No fluid levels. Mastoid air cells: Visualized mastoid air cells are well aerated. Soft tissues: Unremarkable. IMPRESSION: No CT evidence of acute intracranial hemorrhage, mass effect or midline shift. Electronically signed by: Taco Patrick On 04/23/2020 07:23:31 AM
[2020-04-23 07:37] LABS: ALBUMIN 3.3 GM/DL (3.2-5.2); ALT/SGPT 26 U/L (12-78); BILIRUBIN,DIRECT 0.1 MG/DL (0.0-0.2); BILIRUBIN,TOTAL 0.4 MG/DL (0.2-1.0); CK-MB VALUE MASS 1.5 NG/ML (<3.6); CPK CREATINE PHOSPHOKINASE 103 U/L (26-192); FREE T4 1.41 NG/DL (0.76-1.46); LIPASE 131 U/L (73-393); MAGNESIUM LEVEL 1.5 MG/DL (1.8-2.4); MB/CK RELATIVE INDEX 1.46 (< OR =4); THYROID STIMULATING HORMONE 0.284 uIU/ML (0.358-3.740); TOTAL PROTEIN 5.9 GM/DL (6.4-8.2); TROPONIN I < 0.02 NG/ML (< 0.10)
--- NOTE | 2020-04-23 08:09 | REP ---
INDICATION: constipation, rectal pain, n. COMPARISON: Comparison chest x-ray October 02, 2018.. TECHNIQUE: Acute abdominal series: Three views including PA chest x-ray. FINDINGS: Upright chest radiograph is unremarkable. There is no evidence of infiltrate or free subdiaphragmatic air. Heart size is normal. Pulmonary vasculature is not increased. Pleural angles are sharp. Supine and erect views of the abdomen demonstrate a dextroconvex lumbar curvature. The bowel gas pattern is normal. There are clips in the right upper quadrant and some vascular calcification is noted. Flank stripes are intact. Psoas margins are symmetric. No bony destructive lesion is seen. No mass or organomegaly is observed. There is no evidence of free subdiaphragmatic air. Monitoring electrodes are noted. IMPRESSION: Right upper quadrant surgical clips. Normal bowel gas pattern. No evidence of free subdiaphragmatic air or obstruction.. <Electronically signed by Kosta Ulloa > 04/23/20 [id number]
--- NOTE | 2020-04-23 08:58 | ECGEPIP ---
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
[2020-04-23 09:12] VITALS: BP 123/60
== END 2020-04-23 09:14 | disposition home or self-care (01) ==
LOC: M ED 06:12
DX: R55 Syncope and collapse (principal); K59.00 Constipation, unspecified; J45.909 Unspecified asthma, uncomplicated; E03.9 Hypothyroidism, unspecified; F41.9 Anxiety disorder, unspecified; E78.5 Hyperlipidemia, unspecified; K76.0 Fatty (change of) liver, not elsewhere classified; K58.0 Irritable bowel syndrome with diarrhea; I25.10 Atherosclerotic heart disease of native coronary artery without angina pectoris; Z79.899 Other long term (current) drug therapy; Z79.890 Hormone replacement therapy; Z88.0 Allergy status to penicillin; Z88.1 Allergy status to other antibiotic agents; Z88.2 Allergy status to sulfonamides; Z88.5 Allergy status to narcotic agent; Z88.8 Allergy status to other drugs, medicaments and biological substances
CPT/HCPCS: 70450; 74021; 80047; 80076; 82550; 82553; 83690; 83735; 84439; 84443; 84484; 85025; 85610; 85730; 93005; 93041; 94760; 96361; 96374; 99285; J2765

== ENCOUNTER → 2020-10-10 | Outpatient (CLI) | payer MEDICARE, OTHER ==
[~2020-10-10] MED LIST changes: +OMEP40CA4 PO
[2020-10-10 13:22] LABS: ALBUMIN 3.6 GM/DL (3.2-5.2); ALT/SGPT 38 U/L (12-78); BILIRUBIN,TOTAL 0.6 MG/DL (0.2-1.0); BLOOD UREA NITROGEN 21 MG/DL (7-18); CALCIUM LEVEL 8.6 MG/DL (8.8-10.2); CARBON DIOXIDE LEVEL 32 MEQ/L (21-32); CHLORIDE LEVEL 108 MEQ/L (98-107); CREATININE FOR GFR 0.77 MG/DL (0.55-1.30); GLOMERULAR FILTRATION RATE > 60.0 (>39); GLUCOSE, FASTING 89 MG/DL (70-100); POTASSIUM SERUM 3.9 MEQ/L (3.5-5.1); SODIUM LEVEL 143 MEQ/L (136-145); TOTAL PROTEIN 5.9 GM/DL (6.4-8.2)
== END ==
LOC: M WUC 08:43
PROVIDERS: ATTEND Internal Medicine
DX: E78.00 Pure hypercholesterolemia, unspecified (principal); M25.571 Pain in right ankle and joints of right foot

== ENCOUNTER → 2020-10-25 | Outpatient (CLI) | payer MEDICARE, OTHER ==
--- NOTE | 2020-10-25 16:29 | REP ---
INDICATION: MALAISE AND FATIGUE. COMPARISON: PA chest, of 04/23/2020. TECHNIQUE: Upright PA and lateral images of the chest were obtained. FINDINGS: The lungs are clear. There is cardiomegaly without congestive heart failure. There is calcific vascular disease of the thoracic aorta. The upper abdominal bowel gas pattern is normal. There are cholecystectomy clips in right upper quadrant. 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 IMPRESSION: 1. No evidence of acute cardiopulmonary pathology. 2. Cardiomegaly. 3. Other findings as noted. <Electronically signed by Eyal Foreman > 10/25/20 [id number]
[2020-10-25 20:30] LABS: RSV AMPLIFICATION NEGATIVE (NEGATIVE)
== END ==
LOC: M PLALAB 14:11 → M PLAIMG 14:11
PROVIDERS: ATTEND Nurse Practitioner Family
DX: I51.7 Cardiomegaly (principal); M51.34 Other intervertebral disc degeneration, thoracic region; R53.81 Other malaise

== ENCOUNTER → 2021-01-30 | Outpatient (CLI) | payer MEDICARE, OTHER ==
--- NOTE | 2021-01-30 13:25 | REPMRS ---
Patient History The patient states she has not had a clinical breast exam in over a year. Patient is postmenopausal and has history of other cancer. Family history of colorectal cancer at age 50 or over in mother, colorectal cancer at age 50 or over in father, breast cancer under age 50 in maternal aunt. No Hormone Replacement Therapy Tomosynthesis is performed. Volpara breast density is c. Tyrer-Cuzick lifetime risk of breast cancer 2.9%. Patient states no breast complaints today. Patient has signed MRS History Sheet. Digital Woman Screen Mammo: January 30, 2021 - Exam #: [id number] Bilateral CC and MLO view(s) were taken. Technologist: Mellisa Lange Gas Dispatcher Prior study comparison: January 28, 2020, bilateral digital woman screen mammo performed at [facility]. January 26, 2019, bilateral digital woman screen mammo performed at [facility]. FINDINGS: The breast tissue is heterogeneously dense. This may lower the sensitivity of mammography. There has been no change in the appearance of the mammogram from the prior studies. There is a moderate amount of residual fibroglandular tissue which is fairly symmetric. There is no interval development of dominant mass, areas of architectural distortion, or clustered microcalcification typical of malignancy. Assessment: BI-RADS/ACR category 1 mammogram. Negative Mammogram. Recommendation Routine screening mammogram in 1 year (for women over age 40). This mammogram was interpreted with the aid of an FDA-approved computer-aided dectection system. Electronically Signed By: Brice Weber MD 01/30/21 [id number]
== END ==
LOC: M WHC 11:31
PROVIDERS: ATTEND Nurse Practitioner Women's Health
DX: Z12.31 Encounter for screening mammogram for malignant neoplasm of breast (principal)

== ENCOUNTER → 2021-04-18 | Outpatient (CLI) | payer MEDICARE, OTHER ==
[2021-04-18 09:52] LABS: BASO % 0.5 % (0.0-1.0); EOS # 0.1 10^3/uL (0.0-0.5); EOS % 2.2 % (0.0-3.0); HEMATOCRIT 38.4 % (36.0-47.0); HEMOGLOBIN 12.6 g/dl (12.0-15.5); LYMPH # 1.3 10^3/uL (1.5-5.0); LYMPH % 30.9 % (24.0-44.0); MEAN CORPUSCULAR HEMOGLOBIN 31.9 pg (27.0-33.0); MEAN CORPUSCULAR HGB CONC 32.8 g/dl (32.0-36.5); MEAN CORPUSCULAR VOLUME 97.2 fl (80.0-96.0); MONO # 0.3 10^3/uL (0.0-0.8); MONO % 8.1 % (2.0-8.0); NEUTROPHILS # 2.4 10^3/uL (1.5-8.5); NEUTROPHILS % 58.1 % (36.0-66.0); PLATELET COUNT, AUTOMATED 166 10^3/uL (150-450); RED BLOOD COUNT 3.95 10^6/uL (4.00-5.40); WHITE BLOOD COUNT 4.1 10^3/uL (4.0-10.0)
[2021-04-18 10:45] LABS: ALBUMIN 3.7 GM/DL (3.2-5.2); ALT/SGPT 35 U/L (12-78); BILIRUBIN,TOTAL 0.6 MG/DL (0.2-1.0); BLOOD UREA NITROGEN 18 MG/DL (7-18); CARBON DIOXIDE LEVEL 31 MEQ/L (21-32); CHLORIDE LEVEL 107 MEQ/L (98-107); CHOLESTEROL LEVEL 180 MG/DL (<200); CHOLESTEROL RISK RATIO 2.195 (<5); CREATININE FOR GFR 0.92 MG/DL (0.55-1.30); GLOMERULAR FILTRATION RATE > 60.0 (>39); GLUCOSE, FASTING 92 MG/DL (70-100); HDL CHOLESTEROL 82 MG/DL (>40); LDL CHOLESTEROL 87 MG/DL (<100); NON-HDL-C 98 MG/DL; SODIUM LEVEL 143 MEQ/L (136-145); THYROID STIMULATING HORMONE 0.335 uIU/ML (0.358-3.740); TOTAL PROTEIN 6.2 GM/DL (6.4-8.2); TRIGLYCERIDES LEVEL 55 MG/DL (<150)
== END ==
LOC: M WUC 08:08
PROVIDERS: ATTEND Internal Medicine
DX: E03.9 Hypothyroidism, unspecified (principal); E78.00 Pure hypercholesterolemia, unspecified; J45.909 Unspecified asthma, uncomplicated

== ENCOUNTER → 2021-10-16 | Outpatient (CLI) | payer MEDICARE, OTHER ==
[~2021-10-16] MED LIST changes: +ALBU2.5V10 INH; -ALBU83IN INH
[2021-10-16 12:15] LABS: ALBUMIN 3.6 GM/DL (3.2-5.2); ALT/SGPT 33 U/L (12-78); BILIRUBIN,TOTAL 0.5 MG/DL (0.2-1.0); BLOOD UREA NITROGEN 20 MG/DL (7-18); CARBON DIOXIDE LEVEL 30 MEQ/L (21-32); CHLORIDE LEVEL 110 MEQ/L (98-107); CREATININE FOR GFR 0.84 MG/DL (0.55-1.30); GLOMERULAR FILTRATION RATE > 60.0 (>39); GLUCOSE, FASTING 95 MG/DL (70-100); POTASSIUM SERUM 4.3 MEQ/L (3.5-5.1); SODIUM LEVEL 145 MEQ/L (136-145); THYROID STIMULATING HORMONE 0.267 uIU/ML (0.358-3.740); TOTAL PROTEIN 6.2 GM/DL (6.4-8.2)
== END ==
LOC: M WUC 08:39
PROVIDERS: ATTEND Internal Medicine
DX: E78.00 Pure hypercholesterolemia, unspecified (principal); E03.9 Hypothyroidism, unspecified

== ENCOUNTER → 2021-12-04 | Outpatient (REF) | payer MEDICARE, OTHER | LOC: M LABWUC 11:08 | PROVIDERS: ATTEND Internal Medicine Hematology | DX: E03.9 Hypothyroidism, unspecified (principal) ==

== ENCOUNTER → 2022-01-31 | Outpatient (CLI) | payer MEDICARE, OTHER | LOC: M WHC 10:34 | PROVIDERS: ATTEND Internal Medicine Hematology | DX: Z12.31 Encounter for screening mammogram for malignant neoplasm of breast (principal) ==

== ENCOUNTER → 2022-05-02 | Outpatient (CLI) | payer MEDICARE, OTHER ==
[2022-05-02 12:07] LABS: HEMATOCRIT 38.5 % (36.0-47.0); HEMOGLOBIN 12.9 g/dl (12.0-15.5); MEAN CORPUSCULAR HEMOGLOBIN 32.6 pg (27.0-33.0); MEAN CORPUSCULAR HGB CONC 33.5 g/dl (32.0-36.5); MEAN CORPUSCULAR VOLUME 97.2 fl (80.0-96.0); PLATELET COUNT, AUTOMATED 187 10^3/uL (150-450); RED BLOOD COUNT 3.96 10^6/uL (4.00-5.40); WHITE BLOOD COUNT 4.1 10^3/uL (4.0-10.0)
[2022-05-02 12:26] LABS: CREATININE, URINE 114.6 MG/DL; MALB URINE SIEMENS < 3.0 MG/DL; MAU/CREAT RATIO 2.6 MCG/MG (0.0-30.0)
[2022-05-02 12:28] LABS: C REACTIVE PROTEIN QUANTITATIV < 0.40 MG/DL (<1.0)
[2022-05-02 12:30] LABS: HEMOGLOBIN A1c 4.8 % (4.0-6.0)
[2022-05-02 12:33] LABS: ALBUMIN 3.6 G/DL (3.2-5.2); ALKALINE PHOSPHATASE 88 U/L (46-116); ALT/SGPT 28 U/L (7.0-40); AST/SGOT 28 U/L (<34); BILIRUBIN,TOTAL 0.6 MG/DL (0.3-1.2); BLOOD UREA NITROGEN 27 MG/DL (9-23); CARBON DIOXIDE LEVEL 32 MMOL/L (20-31); CHLORIDE LEVEL 104 MMOL/L (98-107); CHOLESTEROL LEVEL 199 MG/DL (<200); CHOLESTEROL RISK RATIO 2.53 (<5); CREATININE FOR GFR 0.87 MG/DL (0.55-1.30); FREE T4 1.43 NG/DL (0.89-1.76); GLOMERULAR FILTRATION RATE > 60.0 (>39); GLUCOSE, FASTING 92 MG/DL (74-106); HDL CHOLESTEROL 78.5 MG/DL (>40); LDL CHOLESTEROL 108.9 MG/DL (<100); NON-HDL-C 121 MG/DL; POTASSIUM SERUM 3.8 MMOL/L (3.5-5.1); SODIUM LEVEL 143 MMOL/L (136-145); THYROID STIMULATING HORMONE 0.997 uIU/ML (0.55-4.78); TOTAL 25(OH) VITAMIN D 55.9 NG/ML (20.0-100.0); TRIGLYCERIDES LEVEL 58 MG/DL (<150); VITAMIN B12 LEVEL 459 PG/ML (211-911)
== END ==
LOC: M WUC 08:33
PROVIDERS: ATTEND Internal Medicine Hematology
DX: E78.00 Pure hypercholesterolemia, unspecified (principal); Z79.899 Other long term (current) drug therapy

== ENCOUNTER → 2022-09-05 | Outpatient (CLI) | payer MEDICARE, OTHER ==
[2022-09-05 16:26] LABS: BASO % 0.3 % (0.0-1.0); EOS # 0.1 10^3/uL (0.0-0.5); EOS % 1.8 % (0.0-3.0); HEMATOCRIT 39.7 % (36.0-47.0); LYMPH # 1.7 10^3/uL (1.5-5.0); LYMPH % 22.8 % (24.0-44.0); MEAN CORPUSCULAR HEMOGLOBIN 31.6 pg (27.0-33.0); MEAN CORPUSCULAR HGB CONC 32.7 g/dl (32.0-36.5); MEAN CORPUSCULAR VOLUME 96.6 fl (80.0-96.0); MONO # 0.4 10^3/uL (0.0-0.8); MONO % 5.8 % (2.0-8.0); PLATELET COUNT, AUTOMATED 214 10^3/uL (150-450); RED BLOOD COUNT 4.11 10^6/uL (4.00-5.40); WHITE BLOOD COUNT 7.3 10^3/uL (4.0-10.0)
[2022-09-05 16:47] LABS: C REACTIVE PROTEIN QUANTITATIV < 0.40 MG/DL (<1.0)
== END ==
LOC: M WUC 14:38
PROVIDERS: ATTEND Internal Medicine Hematology
DX: E03.9 Hypothyroidism, unspecified (principal)

== ENCOUNTER → 2022-11-26 | Outpatient (CLI) | payer MEDICARE, OTHER ==
[2022-11-26 12:37] LABS: HEMOGLOBIN 13.2 g/dl (12.0-15.5); MEAN CORPUSCULAR HEMOGLOBIN 31.9 pg (27.0-33.0); MEAN CORPUSCULAR HGB CONC 32.2 g/dl (32.0-36.5); PLATELET COUNT, AUTOMATED 198 10^3/uL (150-450); RED BLOOD COUNT 4.14 10^6/uL (4.00-5.40); WHITE BLOOD COUNT 4.4 10^3/uL (4.0-10.0)
[2022-11-26 12:56] LABS: C REACTIVE PROTEIN QUANTITATIV < 0.40 MG/DL (<1.0); CREATININE, URINE 139.8 MG/DL; MAU/CREAT RATIO 2.8 MCG/MG (0.0-30.0)
[2022-11-26 13:00] LABS: ALBUMIN 3.7 G/DL (3.2-5.2); ALKALINE PHOSPHATASE 74 U/L (46-116); ALT/SGPT 29 U/L (7.0-40); AST/SGOT 22 U/L (<34); BILIRUBIN,TOTAL 0.6 MG/DL (0.3-1.2); BLOOD UREA NITROGEN 21 MG/DL (9-23); CALCIUM LEVEL 8.8 MG/DL (8.3-10.6); CARBON DIOXIDE LEVEL 32 MMOL/L (20-31); CHLORIDE LEVEL 106 MMOL/L (98-107); CHOLESTEROL LEVEL 191 MG/DL (<200); CHOLESTEROL RISK RATIO 2.42 (<5); GLOMERULAR FILTRATION RATE > 60.0 (>39); GLUCOSE, FASTING 85 MG/DL (74-106); HDL CHOLESTEROL 78.8 MG/DL (>40); LDL CHOLESTEROL 99.2 MG/DL (<100); NON-HDL-C 112.2 MG/DL; POTASSIUM SERUM 4.2 MMOL/L (3.5-5.1); SODIUM LEVEL 142 MMOL/L (136-145); THYROID STIMULATING HORMONE 2.129 uIU/ML (0.55-4.78); TOTAL PROTEIN 6.3 G/DL (5.7-8.2); TRIGLYCERIDES LEVEL 65 MG/DL (<150); VITAMIN B12 LEVEL 446 PG/ML (211-911)
[2022-11-26 13:49] LABS: HEMOGLOBIN A1c 4.9 % (4.0-6.0)
== END ==
LOC: M WUC 10:25
PROVIDERS: ATTEND Internal Medicine Hematology
DX: E78.00 Pure hypercholesterolemia, unspecified (principal)

== ENCOUNTER → 2023-02-04 | Outpatient (CLI) | payer MEDICARE, OTHER | LOC: M WHC 10:40 | PROVIDERS: ATTEND Internal Medicine Hematology | DX: Z12.31 Encounter for screening mammogram for malignant neoplasm of breast (principal); Z13.820 Encounter for screening for osteoporosis; M85.89 Other specified disorders of bone density and structure, multiple sites ==

== ENCOUNTER → 2023-09-23 | Outpatient (CLI) | payer MEDICARE, OTHER | LOC: M PLAIMG 08:22 | PROVIDERS: ATTEND Internal Medicine Gastroenterology | DX: K59.00 Constipation, unspecified (principal); K63.89 Other specified diseases of intestine; Z80.0 Family history of malignant neoplasm of digestive organs; K56.699 Other intestinal obstruction unspecified as to partial versus complete obstruction; K21.9 Gastro-esophageal reflux disease without esophagitis; K57.30 Diverticulosis of large intestine without perforation or abscess without bleeding; R10.31 Right lower quadrant pain; R63.4 Abnormal weight loss; M47.816 Spondylosis without myelopathy or radiculopathy, lumbar region ==

== ENCOUNTER → 2024-01-16 | Outpatient (REF) | payer MEDICARE, OTHER ==
[2024-01-22 02:28] LABS: CHYMOTRYPSIN, STOOL 9.6 U/g (2.3-51.4)
== END ==
LOC: M LAB REF 09:50
PROVIDERS: ATTEND Internal Medicine Gastroenterology
DX: R10.31 Right lower quadrant pain (principal); R14.3 Flatulence; K59.00 Constipation, unspecified

== ENCOUNTER → 2024-02-10 | Outpatient (CLI) | payer MEDICARE, OTHER | LOC: M WHC 11:44 | PROVIDERS: ATTEND Internal Medicine | DX: Z12.31 Encounter for screening mammogram for malignant neoplasm of breast (principal); R92.343 Mammographic extreme density, bilateral breasts ==

== ENCOUNTER → 2024-11-09 | Outpatient (REF) | payer MEDICARE, OTHER ==
[~2024-11-09] MED LIST changes: -FLOM0.4C39 PO; +TAMS-18 PO
[2024-11-09 14:26] LABS: IRON (FE) 105.0 UG/DL (50-170); PERCENT SATURATION 32.2 % (13.2-45.0)
== END ==
LOC: M LAB REF 13:20
PROVIDERS: ATTEND Internal Medicine
DX: D64.9 Anemia, unspecified (principal)